=== PATIENT | female | born 1960 | race Caucasian/White ===

== ENCOUNTER 2021-06-20 11:39 | Inpatient (IN) | payer BC, SELFPAY ==
[2021-06-20] VITALS (8 sets, daily range): BP systolic 99–112; BP diastolic 50–63; PULSE 86–95; RESP 20–31; TEMP 36.6–37.3; O2SAT 82–97; BMI 25.0
--- NOTE | 2021-06-20 13:05 | XR_ITS ---
WS: [id number] XR chest 1V portable [id number] REASON FOR EXAM: SOB FINDINGS: The heart and mediastinum are within normal limits. There are infiltrative changes in both lower lobes and in the left mid and upper lung field periphera lly. These infiltrates are characterized by hazy density with a reticular nodular pattern. No pleural effusions. The bony thorax is intact. XR/XR chest 1V portable [id number] IMPRESSION: Bilateral pulmonary infiltrates of unknown chronicity. Findings are compatible with acute pneumonitis. Pattern is suggestive of Covid pneumonitis.
--- NOTE | 2021-06-20 13:05 | ECG_ITS ---
[facility] Test Date: 2021-06-20 Pat Name: Kiara Oleary Department: Room: Gender: Female Normalizer: : 1960 Requested By: Neftaly Falk Order Number: [id number] Janine MD: Tab Akins M.D. Measurements Intervals Crowell Rate: 100 P: 39 MO: 148 QRS: 79 QRSD: 75 T: 39 QT: 344 QTc: 445 Interpretive Statements SINUS TACHYCARDIA MINIMAL ST DEPRESSION [0.025+ mV ST DEPRESSION] ABNORMAL RHYTHM ECG Compared to ECG 01/18/2017 17:16:53 ST (T wave) deviation now present Sinus rhythm no longer present Electronically Signed On 06-20-2021 14:42:27 CDT by Tab Akins M.D. [id number]
--- NOTE | 2021-06-20 13:08 | W.ED.SOB ---
HPI - SOB/Dyspnea General: Chief Complaint: Shortness of Breath/Dyspnea Stated Complaint: sent,COVID(-):DIZZY, LOW 02 (79%) Time Seen by Provider: 06/20/21 13:03 History of Present Illness: HPI Narrative: This patient is a 60-year-old female who presents to the emergency department with a complaint of shortness of breath diarrhea fatigue body aches. Patient also states she complains of feeling chilled. Patient was seen locally at the burn clinic [facility] and was found to have a pulse ox of 78% on room air. Patient presents to the emergency department with family member with shortness of breath on 3 L by nasal cannula pulse ox is 88%. Patient states that she did recently have a negative Covid swab. States she is been feeling bad for about a week and seems to be getting worse. Patient denies fever. Patient denies any significant medical history and takes no medications at home. Patient has not had the Covid vaccine and states she does not want one. MD elicited complaint: shortness of breath and cough Onset (ago): day(s) Timing: constant Severity: moderate Exacerbating factors: nothing Relieving factors: nothing Associated symptoms: Reports cough; Deny abdominal pain, chest pain, extremity pain, fever(s), lightheadedness, nausea, palpitations or vomiting Treatment prior to arrival: oxygen Review of Systems General: Reports: 10 or more systems reviewed and unremarkable except in HPI and below Const: Reports: chills, body aches and fatigue; Denies: fever(s) Eyes: Denies: change in vision or blurry vision ENMT: Denies: throat pain, hoarseness or mouth pain Card: Denies: chest pain, palpitations, irregular heart rhythm, edema, swelling of feet/ankles or lightheadedness Resp: Reports: dyspnea and non-productive cough; Denies: productive cough, wheezing or pain on inspiration GI: Denies: abdominal pain, nausea or vomiting : Denies: flank pain, difficulty voiding, dysuria, urinary frequency, urinary urgency or urinary hesitancy Musc: Denies: neck pain, back pain, extremity pain, extremity swelling, joint pain, joint swelling, joint redness, joint warmth or limited range of motion Skin/Breast: Denies: rash, pruritus, erythema or skin tenderness Neuro: Denies: headache(s), numbness in extremities or weakness in extremities Psych: Denies: anxiety or depression Physical Exam Const: COMMON NORMALS: no acute distress, average body habitus, patient oriented x3, no limitations, healthy appearing, alert and well nourished HENMT: COMMON NORMALS: normocephalic, atraumatic, hearing grossly normal bilaterally, external ears normal, EAC's normal, TM's normal bilaterally, Normal external nose present, Normal nasal mucous membranes and turbinates present, moist oral mucous membranes, oropharynx normal, dentition normal and gingiva normal HEAD & SCALP: normocephalic and atraumatic NOSE: Normal external nose present and Normal nasal mucous membranes and turbinates present EXTERNAL EAR: Yes external ears normal EXTERNAL AUDITORY CANAL: EAC's normal TYMPANIC MEMBRANE: TM's normal bilaterally Neck/C-Spine: COMMON NORMALS: full ROM, no lymphadenopathy, supple, no meningeal signs, no JVD, Thyroid normal and No carotid bruits THYROID: Thyroid normal Chest: COMMONS NORMALS: normal inspection of the chest, normal palpation of entire chest wall, normal inspection of the breasts and normal palpation of the breasts Breast/axilla inspection: Yes normal inspection of the breasts BREAST/AXILLA PALPATION: Yes normal palpation of the breasts Resp: COMMON NORMALS: No retractions, No use of accessory muscles, clear to auscultation bilaterally and percussion normal EFFORT & INSPECTION: Yes tachypneic and Yes respiratory distress AUSCULTATION: clear to auscultation bilaterally PERCUSSION: percussion normal Cardio: COMMON NORMALS: no JVD, regular rate, regular rhythm, S1 normal heart sound present, S2 normal heart sound present, No gallops present (Cardio), No clicks present (Cardio), No murmurs present (Cardio), No rub (Cardio) and Peripheral pulses 2+ throughout RATE: regular rate RHYTHM: regular rhythm HEART SOUNDS: S1 normal heart sound present and S2 normal heart sound present PERIPHERAL PULSES: Peripheral pulses 2+ throughout GI: COMMON NORMALS: Normal to inspection, nondistended, normoactive bowel sounds present, Soft to palpation, non-tender, No hepatosplenomegaly present, no masses and no bruits PALPATION: Yes Soft to palpation and Yes No hepatosplenomegaly present Back/Pelvis: COMMON NORMALS: thoracic and lumbar spine normal to inspection, no thoracic nor lumbar tenderness, thoraco-lumbar ROM normal and straight leg raise negative bilaterally Extremity: COMMON NORMALS: normal to inspection, full ROM, capillary refill normal, no joint enlargement, no clubbing, cyanosis or edema, no calf tenderness and no pedal edema Neuro: COMMON NORMALS: patient oriented x3 SENSORIUM/ORIENTATION: Yes alert MENINGEAL SIGNS: Yes no meningeal signs Course Reevaluation(s): Reevaluation #1: Patient's O2 sat on 3 L by nasal cannula is 93%. I asked respiratory at the bedside to ambulate patient to see if the patient could do a home O2 evaluation. Patient was intolerant of this evaluation. O2 sat dropped to 81% after walking just a few feet. Patient will need to be admitted. Will still have concerns of possible Covid infection. [employer] Covid test has been ordered. We will continue to monitor the patient Time: 13:46 Reevaluation #2: I did discuss at length with patient about findings and concerns that she does have a Covid infection. Have sent out for [employer] test. PCR patient's O2 sat very labile when trying to get up. Patient be admitted to the hospital to the Covid unit patient states understanding and agrees. Time: 15:59 Consultations: Consultation #1: I did discuss at length with hospitalist agrees to see the patient he will see patient write additional orders. Time: 15:59 Vital Signs: Vital signs: Vital Signs Temperature 97.8 F 06/20/21 12:52 Pulse Rate 91 06/20/21 13:55 Respiratory Rate 31 H 06/20/21 13:55 Blood Pressure 102/63 06/20/21 12:52 Pulse Oximetry 90 06/20/21 13:55 MDM - SOB/Dyspnea MDM Narrative: Medical decision making narrative: This patient is a 60-year-old female who presents to the emergency department with a complaint of shortness of breath diarrhea fatigue body aches. Patient also states she complains of feeling chilled. Patient was seen locally at the burn clinic [facility] and was found to have a pulse ox of 78% on room air. Patient presents to the emergency department with family member with shortness of breath on 3 L by nasal cannula pulse ox is 88%. Patient states that she did recently have a negative Covid swab. States she is been feeling bad for about a week and seems to be getting worse. Patient denies fever. Patient denies any significant medical history and takes no medications at home. Patient has not had the Covid vaccine and states she does not want one. Patient's O2 sat on 3 L by nasal cannula is 93%. I asked respiratory at the bedside to ambulate patient to see if the patient could do a home O2 evaluation. Patient was intolerant of this evaluation. O2 sat dropped to 81% after walking just a few feet. Patient will need to be admitted. Will still have concerns of possible Covid infection. [facility] Covid test has been ordered. We will continue to monitor the patient I did discuss at length with patient about findings and concerns that she does have a Covid infection. Have sent out for [facility] test. PCR patient's O2 sat very labile when trying to get up. Patient be admitted to the hospital to the Covid unit patient states understanding and agrees. I did discuss at length with hospitalist agrees to see the patient he will see patient write additional orders. He will address remdesivir if needed. Lab Data: Labs: Lab Results 06/20/21 06/20/21 06/20/21 Range/Units 13:21 13:55 13:55 WBC (4.0-10.0) 10^3/ uL RBC (4.1-5.3) 10^6/u L Hgb (11.5-15.3) g/dL Hct (37.0-47.0) % MCV (81-99) fL MCH (28.0-34.0) pg MCHC (30.0-36.0) g/dL RDW (12.1-15.1) % Plt Count (130-400) 10^3/c mm MPV (7.4-10.4) fL Neut % (Auto) % Lymph % (Auto) % Fillmore % (Auto) % Eos % (Auto) % Baso % (Auto) % Neut # (Auto) (1.8-7.7) 10^3/u L Lymph # (Auto) (0.8-4.8) 10^3/u L Fillmore # (Auto) (0.2-0.9) 10^3/u L Eos # (Auto) (0.0-0.8) 10^3/u L Baso # (Auto) (0.0-0.1) 10^3/u L Nucleated RBC % (a uto) % Nucleated RBCs # /100WBC PT (12.1-14.9) SECO NDS INR (0.8-1.2) APTT (23.9-36.7) SECO NDS Fibrinogen (174-498) mg/dL D-Dimer (0-0.59) ug/mIFE U Specimen Type Arterial Sample Site Brachial, left ABG pH 7.44 (7.35-7.45) ABG pCO2 29.8 L (35-45) mmHg ABG pO2 73.2 L (80.0-100.0) mmH g ABG HCO3 20.1 L (22-26) mmol/L ABG Base Excess -3.0 L (-2.0-2.0) mmol/ L Chad Test Pos Hematocrit 40.1 (37-47) % O2 Delivery Device Nc O2 Liters/Min 3.0 % FiO2 32.0 % Case Packer And Sealer ID [place] Sodium (136-145) mmol/L Potassium (3.5-5.1) mmol/L Chloride (98-107) mmol/L Carbon Dioxide (22-29) mmol/L Anion Gap (5-19) BUN (6-20) mg/dL Creatinine (0.5-0.9) mg/dL GFR Calculation (90-130) mL/min Glucose (65-115) mg/dL Calculated Osmolal ity (285-295) mOsm/k g Lactic Acid (0.5-2.2) mmol/L Calcium (8.5-10.5) mg/dL Total Bilirubin (0.15-1.2) mg/dL AST (0-32) U/L ALT (0-33) U/L Alkaline Phosphata se (35-105) IU/L Lactate Dehydrogen ase (135-214) U/L Creatine Kinase (26-192) U/L Troponin T Gen 5 n g/L (0-10) ng/L C-Reactive Protein (0.0-4.9) mg/L NT-Pro-B Natriuret Pep (0-125) pg/mL Total Protein (6.6-8.7) g/dL Albumin (3.5-5.2) g/dL Globulin (1.3-4.6) g/dL Influenza Type A A g Negative (Negative) Influenza Type B A g Negative (Negative) SARS-CoV-2 Ag (Rap id) Negative (Negative) 06/20/21 06/20/21 06/20/21 Range/Units 14:38 14:38 14:38 WBC 8.2 (4.0-10.0) 10^3/ uL RBC 3.36 L (4.1-5.3) 10^6/u L Hgb 10.7 L (11.5-15.3) g/dL Hct 32.9 L (37.0-47.0) % MCV 97.9 (81-99) fL MCH 31.8 (28.0-34.0) pg MCHC 32.5 (30.0-36.0) g/dL RDW 12.7 (12.1-15.1) % Plt Count 312 (130-400) 10^3/c mm MPV 10.5 H (7.4-10.4) fL Neut % (Auto) 75.8 % Lymph % (Auto) 16.1 % Fillmore % (Auto) 6.7 % Eos % (Auto) 0.1 % Baso % (Auto) 0.2 % Neut # (Auto) 6.18 (1.8-7.7) 10^3/u L Lymph # (Auto) 1.3 (0.8-4.8) 10^3/u L Fillmore # (Auto) 0.6 (0.2-0.9) 10^3/u L Eos # (Auto) 0.0 (0.0-0.8) 10^3/u L Baso # (Auto) 0.0 (0.0-0.1) 10^3/u L Nucleated RBC % (a uto) 0 % Nucleated RBCs # 0.0 /100WBC PT 13.50 (12.1-14.9) SECO NDS INR 1.00 (0.8-1.2) APTT 22.7 L (23.9-36.7) SECO NDS Fibrinogen 716 H (174-498) mg/dL D-Dimer 2.01 H (0-0.59) ug/mIFE U Specimen Type Sample Site ABG pH (7.35-7.45) ABG pCO2 (35-45) mmHg ABG pO2 (80.0-100.0) mmH g ABG HCO3 (22-26) mmol/L ABG Base Excess (-2.0-2.0) mmol/ L Chad Test Hematocrit (37-47) % O2 Delivery Device O2 Liters/Min % FiO2 % Case Packer And Sealer ID Sodium 132 L (136-145) mmol/L Potassium 3.5 (3.5-5.1) mmol/L Chloride 96 L (98-107) mmol/L Carbon Dioxide 20 L (22-29) mmol/L Anion Gap 19.5 H (5-19) BUN 18 (6-20) mg/dL Creatinine 0.8 (0.5-0.9) mg/dL GFR Calculation 73.4 L (90-130) mL/min Glucose 82 (65-115) mg/dL Calculated Osmolal ity 275 L (285-295) mOsm/k g Lactic Acid (0.5-2.2) mmol/L Calcium 8.9 (8.5-10.5) mg/dL Total Bilirubin 0.9 (0.15-1.2) mg/dL AST 59 H (0-32) U/L ALT 26 (0-33) U/L Alkaline Phosphata se 104 (35-105) IU/L Lactate Dehydrogen ase 522 H (135-214) U/L Creatine Kinase 63 (26-192) U/L Troponin T Gen 5 n g/L (0-10) ng/L C-Reactive Protein 77.1 H (0.0-4.9) mg/L NT-Pro-B Natriuret Pep 141 H (0-125) pg/mL Total Protein 7.7 (6.6-8.7) g/dL Albumin 3.6 (3.5-5.2) g/dL Globulin 4.1 (1.3-4.6) g/dL Influenza Type A A g (Negative) Influenza Type B A g (Negative) SARS-CoV-2 Ag (Rap id) (Negative) 06/20/21 06/20/21 Range/Units 14:38 14:38 WBC (4.0-10.0) 10^3/ uL RBC (4.1-5.3) 10^6/u L Hgb (11.5-15.3) g/dL Hct (37.0-47.0) % MCV (81-99) fL MCH (28.0-34.0) pg MCHC (30.0-36.0) g/dL RDW (12.1-15.1) % Plt Count (130-400) 10^3/c mm MPV (7.4-10.4) fL Neut % (Auto) % Lymph % (Auto) % Fillmore % (Auto) % Eos % (Auto) % Baso % (Auto) % Neut # (Auto) (1.8-7.7) 10^3/u L Lymph # (Auto) (0.8-4.8) 10^3/u L Fillmore # (Auto) (0.2-0.9) 10^3/u L Eos # (Auto) (0.0-0.8) 10^3/u L Baso # (Auto) (0.0-0.1) 10^3/u L Nucleated RBC % (a uto) % Nucleated RBCs # /100WBC PT (12.1-14.9) SECO NDS INR (0.8-1.2) APTT (23.9-36.7) SECO NDS Fibrinogen (174-498) mg/dL D-Dimer (0-0.59) ug/mIFE U Specimen Type Sample Site ABG pH (7.35-7.45) ABG pCO2 (35-45) mmHg ABG pO2 (80.0-100.0) mmH g ABG HCO3 (22-26) mmol/L ABG Base Excess (-2.0-2.0) mmol/ L Chad Test Hematocrit (37-47) % O2 Delivery Device O2 Liters/Min % FiO2 % Case Packer And Sealer ID Sodium (136-145) mmol/L Potassium (3.5-5.1) mmol/L Chloride (98-107) mmol/L Carbon Dioxide (22-29) mmol/L Anion Gap (5-19) BUN (6-20) mg/dL Creatinine (0.5-0.9) mg/dL GFR Calculation (90-130) mL/min Glucose (65-115) mg/dL Calculated Osmolal ity (285-295) mOsm/k g Lactic Acid 1.9 (0.5-2.2) mmol/L Calcium (8.5-10.5) mg/dL Total Bilirubin (0.15-1.2) mg/dL AST (0-32) U/L ALT (0-33) U/L Alkaline Phosphata se (35-105) IU/L Lactate Dehydrogen ase (135-214) U/L Creatine Kinase (26-192) U/L Troponin T Gen 5 n g/L 8 (0-10) ng/L C-Reactive Protein (0.0-4.9) mg/L NT-Pro-B Natriuret Pep (0-125) pg/mL Total Protein (6.6-8.7) g/dL Albumin (3.5-5.2) g/dL Globulin (1.3-4.6) g/dL Influenza Type A A g (Negative) Influenza Type B A g (Negative) SARS-CoV-2 Ag (Rap id) (Negative) Imaging Data^: CXR: Attestation: I personally reviewed and interpreted this imaging study as follows: Radiologist's impression: IMPRESSION: Bilateral pulmonary infiltrates of unknown chronicity. Findings are compatible with acute pneumonitis. Pattern is suggestive of Covid pneumonitis. EKG Data^: EKG 1: Attestation: I personally reviewed and interpreted this EKG as follows: EKG Interpretation Date: 06/20/21 EKG interpretation time: 14:25 Prior EKG tracings: not available for review Interpretation: Sinus tachycardia heart rate [address] changes Discharge Plan Discharge Patient Disposition: Admitted As Inpatient Clinical Impression: Dyspnea due to severe acute respiratory syndrome coronavirus 2 (SARS-CoV-2) disease Condition: Stable Coding Level of Care Code ED Fertilizer Supervisor for Chg Fwd Exam Comprehensive
[2021-06-20] MEDS: albuterol 8 gm MDI 2 PUFF INHALATION (13:23)
[2021-06-20 13:34] LABS: ABG PCO2 29.8 mmHg (35-45); ABG PH Result 7.44 (7.35-7.45); Arterial Blood Gas Hematocrit 40.1 % (37-47); Blood Gas Allen Test Pos; Blood Gas Operator Identificat MONRO; Blood Gas Sample Site Brachial, left; Blood Gas Sample Type Arterial; HCO3 ABG 20.1 mmol/L (22-26); Oxygen Device NC; PO2 ABG 73.2 mmHg (80.0-100.0)
[2021-06-20 14:42] LABS: Influenza A by IFA Negative (Negative); Influenza B by IFA Negative (Negative); SARS Covid-2 Antigen Negative (Negative)
[2021-06-20 14:45] LABS: Basophils % 0.2 %; Eosinophils % 0.1 %; Hematocrit 32.9 % (37.0-47.0); Hemoglobin 10.7 g/dL (11.5-15.3); Lymphocytes # 1.3 10^3/uL (0.8-4.8); Lymphocytes % 16.1 %; Mean Corpuscular HGB Conc 32.5 g/dL (30.0-36.0); Mean Corpuscular Hemoglobin 31.8 pg (28.0-34.0); Mean Corpuscular Volume 97.9 fL (81-99); Mean Platelet Volume 10.5 fL (7.4-10.4); Monocytes # 0.6 10^3/uL (0.2-0.9); Monocytes % 6.7 %; Neutrophils # 6.18 10^3/uL (1.8-7.7); Neutrophils % 75.8 %; Nucleated Red Blood Cells % 0 %; Platelet Count 312 10^3/cmm (130-400); Positive M 1; Red Blood Count 3.36 10^6/uL (4.1-5.3); Red Cell Distribution Width 12.7 % (12.1-15.1); White Blood Count 8.2 10^3/uL (4.0-10.0)
[2021-06-20 15:02] LABS: Troponin T (5th) Once 8 ng/L (0-10)
[2021-06-20 15:03] LABS: Lactic Sepsis W/Reflex 1.9 mmol/L (0.5-2.2); Partial Thromboplastin Time 22.7 SECONDS (23.9-36.7)
[2021-06-20 15:05] LABS: D Dimer 2.01 ug/mIFEU (0-0.59)
--- NOTE | 2021-06-20 15:05 | CT_ITS ---
WS: [id number] CTA OF THE CHEST WITH PULMONARY EMBOLISM PROTOCOL TECHNIQUE: High-resolution contrast enhanced CTA of the chest with coronal and sagittal reformatted i mages with pulmonary embolism protocol. MIP images are also reviewed. CLINICAL INFORMATION: SOB with Elevated DDimer COMPARISON: None. DLP: 450.[address] scans at [facility] use at least one of these dose optimization techniques: automat ed exposure control; mA and/or kV adjustment per patient size (includes targeted exams where dose is matched to clinical indication); or iterative reconstruction. FINDINGS: Proximal main pulmonary arteries are normal. Normal segmental and subsegmental pulmonary arteries. No evidence of pulmonary embolus. Normal caliber thoracic aorta. A few prominent peribronchial lymph nodes likely reactive. Mild bilate ral bronchovascular thickening. Hazy bilateral groundglass infiltrates throughout both lungs more prominent in the mid and lower lobe s in a subpleural location compatible with COVID 19 pneumonia. No significant pleural fluid. Small esophageal hiatal hernia. Adrenal glands are normal. Mild thoracic kyphosis with chronic anteri or wedging in the mid thoracic spine. CT/CT angio chest PE protcl [id number] IMPRESSION: 1. No evidence of pulmonary embolism. 2. Diffuse bilateral hazy groundglass infiltrates more prominent in the mid an d lower lungs bilaterally in a subpleural configuration compatible with COVID 1 9 pneumonia. 3. A few reactive anterior mediastinal and peribronchial lymph nodes. 4. Small esophageal hiatal hernia.
[2021-06-20 15:13] LABS: Alanine Aminotransferase 26 U/L (0-33); Albumin Level 3.6 g/dL (3.5-5.2); Alkaline Phosphatase 104 IU/L (35-105); Anion Gap 19.5 (5-19); Aspartate Amino Transferase 59 U/L (0-32); Blood Urea Nitrogen 18 mg/dL (6-20); C Reactive Protein 77.1 mg/L (0.0-4.9); Calcium 8.9 mg/dL (8.5-10.5); Carbon Dioxide 20 mmol/L (22-29); Chloride 96 mmol/L (98-107); Creatine Phosphokinase 63 U/L (26-192); Globulin 4.1 g/dL (1.3-4.6); Glomerular Filtration Rate 73.4 mL/min (90-130); Glucose 82 mg/dL (65-115); Lactate Dehydrogenase 522 U/L (135-214); NT Pro B Type Natriuretic Pept 141 pg/mL (0-125); Osmolality Calculated 275 mOsm/kg (285-295); Potassium 3.5 mmol/L (3.5-5.1); Sodium 132 mmol/L (136-145); Total Bilirubin 0.9 mg/dL (0.15-1.2); Total Protein 7.7 g/dL (6.6-8.7)
[2021-06-20 15:23] LABS: Fibrinogen 716 mg/dL (174-498)
[2021-06-20] MEDS: dexamethasone 4 mg/mL INJ 6 MG IVP (16:00)
--- NOTE | 2021-06-20 16:24 | PC.NURSE ---
DEXAMETHASONE DELAY D/T DIFFICULTY OBTAINING IV ACCESS.
[2021-06-20] MEDS: iohexol 350 mg/mL 100 mL Btl IV (16:29)
--- NOTE | 2021-06-20 18:50 | P.HP_ITS ---
Providers/Chief Complaint Chief Complaint: sent,COVID(-):DIZZY, LOW 02 (79%) History of Present Illness Kiara Oleary is a 60 year old female with no known past medical history presented today with chief complaint of dizziness and fatigue. Symptoms started 1 week ago which she describing as lightheaded and dizziness. No recent syncopal events or falls. She has been experiencing diarrhea, nausea with worsening of fatigue and anorexia. She has been experiencing rigors/chills and subjective fevers. She lives alone. She is not vaccinated. No active chest pain. She is endorsing shortness of breath at rest and on exertion. EMS was called, she was saturating 78% on room air, she was put on 3 L nasal cannula and on ambulation she desaturated to 80%, COVID-19 negative, PCR sent, she was given Decadron in the ER, chest x-ray consistent with bilateral groundglass opacities her clinical presentation consistent with COVID-19 I will go ahead and start remdesivir. High D-dimer however CTA ruled out PE. Review of Systems Const: Reports: fever(s) and chills Eyes: Denies: change in vision ENMT: Denies: throat pain Card: Denies: chest pain Resp: Reports: dyspnea GI: Reports: diarrhea; Denies: abdominal pain : Denies: flank pain Musc: Denies: neck pain Skin/Breast: Denies: rash Neuro: Reports: headache(s) Psych: Denies: anxiety Endo: Denies: polyuria Marco/Lymph: Denies: easy bruising All/Imm: Denies: urticaria Medications/Allergies Home Medications Medication Instructions Recorded Confirmed Last Taken Type acetaminophen [Tylenol Extra 1,000 mg PO PRN 06/20/21 06/20/21 Unknown History Strength] loratadine [Claritin] 10 mg PO DAILY PRN 06/20/21 06/20/21 06/19/21 History Allergies Allergy/AdvReac Type Severity Reaction Status Date / Time No Known Allergies Allergy Verified 06/20/21 13:39 PFSH Acute PFSH: Medical History (Updated 06/20/21 @ 19:26 by Adina Easley MD) No pertinent past medical history Surgical History (Updated 06/20/21 @ 19:24 by Adina Easley MD) No history of previous surgery Family History (Updated 06/20/21 @ 19:24 by Adina Easley MD) Denies family history of Chronic kidney disease (CKD) Family history of premature coronary artery disease Lung disease Social History (Updated 06/20/21 @ 19:25 by Adina Easley MD) Smoking and tobacco status: never smoked Alcohol intake: never Substance/Drug Use: never Lives independently: Yes Housing: House Vitals/I&O/Wt Last Vital Signs Temp 97.8 F 06/20/21 12:52 Pulse 89 06/20/21 16:24 Resp 31 H 06/20/21 13:55 BP 102/63 06/20/21 12:52 Pulse Ox 93 06/20/21 16:24 Weight last 48 hrs Weight 56.245 kg Physical Exam Narrative: EXAM NARRATIVE: Healthy looking female who was laying flat in her bed saturating well on 3 L nasal cannula S1, S2 sinus rhythm no signs of heart failure or murmur Abdomen soft nontender bowel sounds present Lower extremity no edema gangrene ulcer EOMI, PERRLA GCS 15 No cellulitis or joint swelling Bilateral breath sounds without audible stridor or wheezing Data : 06/20/21 14:38 06/20/21 14:38 Micro: Microbiology 06/20/21 15:39 Blood Culture - Preliminary Blood SPECIMEN COLLECTED 06/20/21 14:38 Blood Culture - Preliminary Blood SPECIMEN COLLECTED A&P Assessment and plan (1) Dyspnea due to severe acute respiratory syndrome coronavirus 2 (SARS-CoV-2) disease: Status: Acute (2) Acute respiratory failure with hypoxia: Status: Acute Additional A&P Information Acute hypoxia most likely secondary COVID-19 pneumonia Currently saturating well on 3 L nasal cannula Covid antigen negative, PCR sent Start remdesivir and Decadron regimen CRP above 75, if her oxygen requirement is going up would consider interleukin-6 inhibitor Ventolin, encourage proning PT evaluation Inflammatory marker follow-up CTA ruled out PE for high D-dimer , Patient lives alone and is not interested in getting vaccine Full code Cardiac diet DVT prophylaxis Lovenox Attestations Medical Necessity Statement*: Anticipating her stay to cross more than 2 midnights Time Spent in Patient Care: 16 - 35 minutes Coding Level of Care Code Acute Blacking Wheel Tender for Masoud Fwselene Diagnoses Dyspnea due to severe acute respiratory syndrome coronavirus 2 (SARS-CoV-2) disease U07.1; R06.00 Acute respiratory failure with hypoxia J96.01
--- NOTE | 2021-06-20 19:09 | PC.NURSE ---
Report from JOSEPH Menjivar
[2021-06-20 20:38] LABS: Estmated Average Glucose 114; Hemoglobin A1C 5.6 % (4.0-6.0)
[2021-06-20] MEDS: remdesivir 200 MG in sodium chloride 0.9% (100 ml) 100 ML 100 MG IV (23:26)
[2021-06-21] VITALS (13 sets, daily range): BP systolic 95–114; BP diastolic 53–64; PULSE 63–84; RESP 14–22; TEMP 36.4–37.1; O2SAT 90–95
[2021-06-21 03:32] LABS: Basophils % 0.3 %; Hematocrit 36.8 % (37.0-47.0); Hemoglobin 12.4 g/dL (11.5-15.3); Lymphocytes % 25.2 %; Mean Corpuscular HGB Conc 33.7 g/dL (30.0-36.0); Mean Corpuscular Hemoglobin 31.2 pg (28.0-34.0); Mean Corpuscular Volume 92.5 fL (81-99); Mean Platelet Volume 10.8 fL (7.4-10.4); Monocytes # 0.2 10^3/uL (0.2-0.9); Monocytes % 6.1 %; Neutrophils # 2.52 10^3/uL (1.8-7.7); Neutrophils % 66.8 %; Nucleated Red Blood Cells % 0 %; Platelet Count 288 10^3/cmm (130-400); Red Blood Count 3.98 10^6/uL (4.1-5.3); Red Cell Distribution Width 12.2 % (12.1-15.1); White Blood Count 3.8 10^3/uL (4.0-10.0)
[2021-06-21 03:57] LABS: Anion Gap 17.1 (5-19); Blood Urea Nitrogen 19 mg/dL (6-20); Carbon Dioxide 21 mmol/L (22-29); Chloride 101 mmol/L (98-107); Glomerular Filtration Rate 73.4 mL/min (90-130); Glucose 143 mg/dL (65-115); Magnesium 2.5 mg/dL (1.7-2.3); Osmolality Calculated 285 mOsm/kg (285-295); Potassium 4.1 mmol/L (3.5-5.1); Sodium 135 mmol/L (136-145)
[2021-06-21 04:01] LABS: Procalcitonin 0.23 ng/mL (0-0.5)
[2021-06-21 04:12] LABS: Ferritin 2569 ng/mL (15-150)
[2021-06-21 04:26] LABS: Slide Review Slide Review Perform
[2021-06-21 05:01] LABS: ABG PCO2 35.8 mmHg (35-45); ABG PH Result 7.42 (7.35-7.45); Base Excess ABG -1.2 mmol/L (-2.0-2.0); Blood Gas Allen Test Pos; Blood Gas Sample Site Radial, left; Blood Gas Sample Type Arterial; Oxygen Device NC; PO2 ABG 62.6 mmHg (80.0-100.0)
--- NOTE | 2021-06-21 13:54 | P.PN_ITS ---
Subjective Subjective: Interval history: Patient is feeling lethargic and fatigued, subjective fevers with chills, she has not been able to get up from bed because of her weakness Saturating well on 3 L nasal cannula Vitals/I&O/Wt Last Vital Signs Temp 97.6 F 06/21/21 11:50 Pulse 64 06/21/21 11:50 Resp 14 06/21/21 11:50 BP 104/53 06/21/21 11:50 Pulse Ox 92 06/21/21 11:50 06/20/21 06/21/21 06/21/21 22:59 06:59 14:59 Intake Total 300 / 300 480 / 480 Output Total 450 / 450 Balance 300 / 300 / Weight last 48 hrs Weight 56.245 kg Physical Exam Narrative: EXAM NARRATIVE: Patient was in her bed extremely lethargic and fatigued She is endorsing diarrhea today No abdominal tenderness No acute respite distress saturating well on 3 to nasal cannula No strokelike symptoms EOMI, PERRLA No new neurological deficits No joint swelling No cellulitis Data : 06/21/21 02:42 06/21/21 02:42 Micro: Microbiology 06/20/21 15:39 Blood Culture - Preliminary Blood SPECIMEN COLLECTED 06/20/21 14:38 Blood Culture - Preliminary Blood SPECIMEN COLLECTED A&P Assessment and plan (1) Acute respiratory failure with hypoxia: Status: Acute Additional A&P Information Acute hypoxic respiratory failure Fatigue lethargy with high inflammatory markers Covid PCR pending however I have started her on Decadron and remdesivir on chest x-ray showing groundglass opacities Currently saturating well on 3 to nasal cannula she has to work with physical therapy today we will ask RT to see if she is able to maintain her saturation on ambulation Complaining of diarrhea today as well Afebrile BNP 141 Full code DVT prophylaxis Lovenox Regular diet Attestations Medical Necessity Statement*: Continue medical management for hypoxia Time Spent in Patient Care: less than 15 minutes Coding Level of Care Code Acute Pharmaceutical Sales Representative for Masoud Emmanuel Diagnoses Acute respiratory failure with hypoxia J96.01
[2021-06-21] MEDS: remdesivir 100 MG in sodium chloride 0.9% (100 ml) 100 ML IV (17:10)
[2021-06-21] MEDS: albuterol 8 gm MDI 2 PUFF INHALATION (20:54)
[2021-06-21] MEDS: dexamethasone 4 mg/mL INJ 6 MG IVP (20:59)
[2021-06-21] MEDS: enoxaparin 40 mg/0.4 mL Syringe SUBCUT (20:59)
[2021-06-21] MEDS: acetaminophen 500 mg Tablet PO (21:30)
[2021-06-22] VITALS (10 sets, daily range): BP systolic 95–120; BP diastolic 56–70; PULSE 56–79; RESP 16–20; TEMP 36.4–37; O2SAT 89–97
[2021-06-22] MEDS: albuterol 8 gm MDI 2 PUFF INHALATION (08:30)
--- NOTE | 2021-06-22 12:53 | P.PN_ITS ---
Subjective Subjective: Interval history: Covid PCR is pending, patient is feeling lethargic and fatigued however afebrile doing well on 5 to 6 L nasal cannula which I have turned down to 4 L in the room she is able to use bedside commode no active diarrhea Vitals/I&O/Wt Last Vital Signs Temp 98.4 F 06/22/21 11:25 Pulse 76 06/22/21 11:25 Resp 20 H 06/22/21 11:25 BP 95/59 06/22/21 11:25 Pulse Ox 91 06/22/21 11:25 06/21/21 06/22/21 06/22/21 22:59 06:59 14:59 Intake Total 600 / 1080 200 / 1280 120 / 120 Output Total 300 / 750 Balance 300 / 330 200 / 530 120 / 120 Physical Exam Narrative: EXAM NARRATIVE: Patient resting comfortably in her bed saturating well on 4 L nasal cannula S1, S2 no murmur appreciated clinically looks euvolemic Abdomen soft no signs of peritonitis no neurological deficits noted No acute signs of respiratory distress no audible stridor or wheezing No signs of cellulitis or joint swelling Data : 06/21/21 02:42 06/21/21 02:42 Micro: Microbiology 06/20/21 15:39 Blood Culture - Preliminary Blood NEGATIVE TO DATE 06/20/21 14:38 Blood Culture - Preliminary Blood NEGATIVE TO DATE A&P Assessment and plan (1) Acute respiratory failure with hypoxia: Acute hypoxic respiratory failure secondary to likely COVID-19, PCR is pending, saturating well on 4 to 5 L nasal cannula She is afebrile, I would continue Decadron and remdesivir for now High inflammatory markers noted If her PCR comes back positive and she is requiring higher O2 she might qualify for interleukin-6 inhibitor dose Status: Acute Additional A&P Information Regular diet Hemoglobin A1c within normal range Full code DVT prophylaxis Lovenox Attestations Medical Necessity Statement*: She will stay in the hospital until her PCR comes back, high risk for deterioration requiring 4 to 5 L of nasal cannula Time Spent in Patient Care: less than 15 minutes Coding Level of Care Code Acute 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
[2021-06-22] MEDS: remdesivir 100 MG in sodium chloride 0.9% (100 ml) 100 ML IV (17:19)
--- NOTE | 2021-06-22 17:34 | PC.PT ---
pt indep with transfers and gait without AD or O2, no therapy needs noted by patient at this time. pt to notifiy nursing if this changes. pt instructed in marching and sit to stand to sit ex. no therapy needed at this time. PM MSPT
--- NOTE | 2021-06-22 18:11 | PC.NURSE ---
Shift Summary No complaints from patient throughout shift. Patient weaned to 3L per NC. She is up to BSC independently. Observed non-productive cough, patient states that sometime she coughs up clear phlegm. IV restarted in right hand, remdesivir administered per orders.
[2021-06-22] MEDS: dexamethasone 4 mg/mL INJ 6 MG IVP (20:25)
[2021-06-22] MEDS: enoxaparin 40 mg/0.4 mL Syringe SUBCUT (20:42)
[2021-06-23] VITALS (14 sets, daily range): BP systolic 84–112; BP diastolic 52–68; PULSE 58–83; RESP 15–20; TEMP 36.4–37.4; O2SAT 88–96
[2021-06-23] MEDS: albuterol 8 gm MDI 2 PUFF INHALATION ×3 (00:18→19:39)
[2021-06-23 06:33] LABS: Basophils % 0.1 %; Hematocrit 36.9 % (37.0-47.0); Hemoglobin 12.6 g/dL (11.5-15.3); Lymphocytes # 0.8 10^3/uL (0.8-4.8); Lymphocytes % 9.9 %; Mean Corpuscular HGB Conc 34.1 g/dL (30.0-36.0); Mean Corpuscular Hemoglobin 31.7 pg (28.0-34.0); Mean Corpuscular Volume 92.9 fL (81-99); Monocytes # 0.4 10^3/uL (0.2-0.9); Monocytes % 5.4 %; Neutrophils # 6.85 10^3/uL (1.8-7.7); Neutrophils % 83.9 %; Nucleated Red Blood Cells % 0 %; Platelet Count 335 10^3/cmm (130-400); Red Blood Count 3.97 10^6/uL (4.1-5.3); White Blood Count 8.2 10^3/uL (4.0-10.0)
[2021-06-23 07:01] LABS: C Reactive Protein 16.8 mg/L (0.0-4.9)
--- NOTE | 2021-06-23 10:46 | PM.PN ---
Subjective Subjective: Interval history: Patient was seen and examined this morning, patient endorsing feeling better, she is able to finish 70 to 80% of her meals, able to get up and use bedside commode, today she was saturating well on 3 L nasal cannula No overnight events her diarrhea has improved Covid PCR is still pending CRP seems to be trending down Noticed low blood pressure today we will give her a bolus of 500 mL of saline, check TSH Vitals/I&O/Wt Last Vital Signs Temp 98.0 F 06/23/21 08:00 Pulse 75 06/23/21 08:00 Resp 16 06/23/21 08:00 BP 96/60 06/23/21 08:00 Pulse Ox 90 06/23/21 08:00 06/22/21 06/23/21 06/23/21 22:59 06:59 14:59 Intake Total 320 / 560 500 / 500 Output Total 550 / 1150 Balance -230 / -590 500 / 500 Physical Exam Narrative: EXAM NARRATIVE: Patient was resting comfortably in her bed No active complaints no chest pain S1, S2 No signs of fluid overload Clinically looks euvolemic to me No neurological deficit No acute respite distress saturating well on 3 L nasal cannula EOMI, PERRLA No joint swelling or cellulitis Does experience dry cough on deep inspiration Data : 06/23/21 05:14 06/21/21 02:42 A&P Assessment and plan (1) Acute respiratory failure with hypoxia: Status: Acute (2) Hypotension: Status: Acute Additional A&P Information Acute hypoxic respiratory failure most likely related to COVID-19 fracture COVID-19 negative, Covid PCR is pending But depending on her symptoms and inflammatory markers I have started her on Decadron and remdesivir She is not vaccinated Continue Ventolin Procalcitonin unremarkable would not need any antibiotics CT rule out PE CRP trending down Patient is able to eat 70 to 80% of her meals, to work with physical therapy, encouraged proning and incentive spirometry Hypotension: Check TSH, this most likely related to consistent laying in her bed and lack of ambulation, no active signs of septic shock no active chest pain PE ruled out We will give her normal saline 500 mL bolus Patient lives alone and she does not want to go to any detention, will plan to send her home once we know her PCR result and PT evaluation Regular diet DVT prophylaxis Lovenox Full code Attestations Medical Necessity Statement*: Continue medical management she is at high risk for worsening of hypoxia continue hospitalization planning discharge probably on Thursday Time Spent in Patient Care: less than 15 minutes Coding Level of Care Code 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
[2021-06-23 11:57] LABS: Coronavirus Test Green County Not Detected
--- NOTE | 2021-06-23 16:56 | XRR_ITS ---
PROCEDURE INFORMATION: Exam: XR Chest Exam date and time: 06/23/2021 4:56 PM Age: 60 years old Clinical indication: Shortness of breath; Additional info: Hypoxia TECHNIQUE: Imaging protocol: XR of the chest. Views: 1 view. COMPARISON: CR XR chest 1V portable [id number] 06/20/2021 1:05 PM FINDINGS: Lungs: Increased patchy peripheral ground-glass opacities in both lungs. Pleural spaces: Unremarkable. No pleural effusion. No pneumothorax. Heart/Mediastinum: Unremarkable. No cardiomegaly. Bones/joints: Unremarkable. XR/XR chest 1V portable [id number] IMPRESSION: 1. Increased multilobar pneumonia.
[2021-06-23] MEDS: midodrine 5 mg TABLET 10 MG PO (17:35)
[2021-06-23] MEDS: remdesivir 100 MG in sodium chloride 0.9% (100 ml) 100 ML IV (17:35)
[2021-06-23] MEDS: sodium chloride 0.9% 1,000 ML 999 ML IV ×2 (17:35→19:01)
[2021-06-23 18:20] LABS: Thyroid Stimulating Hormone 0.52 uIU/mL (0.27-4.20)
[2021-06-23] MEDS: dexamethasone 4 mg/mL INJ 6 MG IVP (21:15)
[2021-06-23] MEDS: enoxaparin 40 mg/0.4 mL Syringe SUBCUT (21:16)
[2021-06-24] VITALS (15 sets, daily range): BP systolic 81–114; BP diastolic 39–69; PULSE 46–91; RESP 16–24; TEMP 36.4–36.9; O2SAT 88–98
[2021-06-24] MEDS: levoFLOXacin 750 mg Tablet PO (06:35)
[2021-06-24 07:00] LABS: Basophils % 0.1 %; Hematocrit 37.9 % (37.0-47.0); Hemoglobin 12.8 g/dL (11.5-15.3); Lymphocytes # 0.9 10^3/uL (0.8-4.8); Lymphocytes % 9.7 %; Mean Corpuscular HGB Conc 33.8 g/dL (30.0-36.0); Mean Corpuscular Hemoglobin 31.6 pg (28.0-34.0); Mean Corpuscular Volume 93.6 fL (81-99); Mean Platelet Volume 10.9 fL (7.4-10.4); Monocytes # 0.5 10^3/uL (0.2-0.9); Neutrophils # 7.26 10^3/uL (1.8-7.7); Neutrophils % 83.2 %; Nucleated Red Blood Cells % 0 %; Platelet Count 365 10^3/cmm (130-400); Red Blood Count 4.05 10^6/uL (4.1-5.3); Red Cell Distribution Width 12.2 % (12.1-15.1); White Blood Count 8.7 10^3/uL (4.0-10.0)
[2021-06-24 07:29] LABS: Anion Gap 15.4 (5-19); Blood Urea Nitrogen 16 mg/dL (6-20); C Reactive Protein 30.9 mg/L (0.0-4.9); Carbon Dioxide 20 mmol/L (22-29); Chloride 108 mmol/L (98-107); Glomerular Filtration Rate 85.6 mL/min (90-130); Glucose 142 mg/dL (65-115); Osmolality Calculated 292 mOsm/kg (285-295); Potassium 4.4 mmol/L (3.5-5.1); Sodium 139 mmol/L (136-145)
--- NOTE | 2021-06-24 12:24 | PM.PN ---
Subjective Subjective: Interval history: Patient was seen and examined this morning, continues to complain of shortness of breath, though it has slightly improved since yesterday. Blood pressure continues to remain on the softer side, she has continued to remain afebrile. Her other vitals and labs have been reviewed. Medications: Reviewed: Yes Vitals/I&O/Wt Last Vital Signs Temp 97.5 F L 06/24/21 11:58 Pulse 74 06/24/21 11:58 Resp 20 H 06/24/21 11:58 BP 93/48 06/24/21 11:58 Pulse Ox 96 06/24/21 11:58 06/23/21 06/24/21 06/24/21 22:59 06:59 14:59 Intake Total 2100 / 2960 150 / 3110 120 / 120 Output Total 450 / 450 700 / 700 Balance 1650 / 2510 150 / 2660 -580 / -580 Physical Exam Const: COMMON NORMALS: patient oriented x3 HENMT: COMMON NORMALS: normocephalic and atraumatic HEAD & SCALP: normocephalic and atraumatic Resp: COMMON NORMALS: clear to auscultation bilaterally AUSCULTATION: clear to auscultation bilaterally Cardio: COMMON NORMALS: regular rate, regular rhythm, S1 normal heart sound present, S2 normal heart sound present, No gallops present (Cardio), No murmurs present (Cardio), No rub (Cardio) and Peripheral pulses 2+ throughout RATE: regular rate RHYTHM: regular rhythm HEART SOUNDS: S1 normal heart sound present and S2 normal heart sound present PERIPHERAL PULSES: Peripheral pulses 2+ throughout GI: COMMON NORMALS: Normal to inspection, nondistended, normoactive bowel sounds present, Soft to palpation, non-tender, No hepatosplenomegaly present and no masses AUSCULTATION: Yes normoactive bowel sounds PALPATION: Yes Soft to palpation and Yes No hepatosplenomegaly present RECTAL EXAM: deferred Extremity: COMMON NORMALS: no clubbing, cyanosis or edema and no pedal edema Neuro: COMMON NORMALS: patient oriented x3 Data : 06/24/21 06:41 06/24/21 06:41 A&P Assessment and plan (1) Acute respiratory failure with hypoxia: Acute hypoxic respiratory failure secondary to likely COVID-19, PCR is pending, saturating well on 4 to 5 L nasal cannula She is afebrile, I would continue Decadron and remdesivir for now High inflammatory markers noted If her PCR comes back positive and she is requiring higher O2 she might qualify for interleukin-6 inhibitor dose Status: Acute (2) Hypotension: Status: Acute Additional A&P Information Acute hypoxic respiratory failure most likely related to COVID-19 PNA COVID-19 negative, Covid PCR is pending Urine legionella Bacterial Antigen panel Procalcitonin:Normal CT rule out PE Blood Culture: Influenza Negative Respiratory Viral Panel : MRSA PCR: CRP trending down Currently on Decadron and remdesivir empirically Cef and Levofloxacin She is not vaccinated Continue Ventolin Hypotension: TSH: Normal Random Cortisol : 1.10 Will plan for SIM Test Midodrine 5 mg po TID Check orthostatic Hypootension 2 D Echo Patient lives alone and she does not want to go to any detention, will plan to send her home once we know her PCR result and PT evaluation Regular diet DVT prophylaxis Lovenox Full code Attestations Medical Necessity Statement*: Patient needs to be in the hospital for management of pneumonia. 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
[2021-06-24] MEDS: albuterol 8 gm MDI 2 PUFF INHALATION (13:05)
[2021-06-24] MEDS: cefTRIAXone 1,000 MG in sodium chloride 0.9% (plus) 50 ML 100 MG IV (14:10)
[2021-06-24] MEDS: midodrine 5 mg TABLET PO ×2 (14:11→20:01)
--- NOTE | 2021-06-24 15:11 | PC.NURSE ---
Orthostatic vital signs were ordered. Patient was unable to tolerate standing for vital signs.
[2021-06-24 15:24] LABS: Coronavirus Test Green County Not Detected
[2021-06-24] MEDS: remdesivir 100 MG in sodium chloride 0.9% (100 ml) 100 ML IV (17:15)
[2021-06-24] MEDS: enoxaparin 40 mg/0.4 mL Syringe SUBCUT (20:01)
[2021-06-24] MEDS: dexamethasone 4 mg/mL INJ 6 MG IVP (21:13)
[2021-06-25] VITALS (11 sets, daily range): BP systolic 91–101; BP diastolic 57–66; PULSE 51–88; RESP 16–20; TEMP 36.4–37.1; O2SAT 88–98
[2021-06-25] MEDS: levoFLOXacin 750 mg Tablet PO (05:39)
[2021-06-25 05:51] LABS: Basophils % 0.2 %; Eosinophils % 0.1 %; Hematocrit 39.3 % (37.0-47.0); Hemoglobin 12.6 g/dL (11.5-15.3); Lymphocytes # 0.8 10^3/uL (0.8-4.8); Mean Corpuscular HGB Conc 32.1 g/dL (30.0-36.0); Mean Corpuscular Hemoglobin 31.3 pg (28.0-34.0); Mean Corpuscular Volume 97.8 fL (81-99); Mean Platelet Volume 10.9 fL (7.4-10.4); Monocytes # 0.4 10^3/uL (0.2-0.9); Monocytes % 4.9 %; Neutrophils # 6.77 10^3/uL (1.8-7.7); Neutrophils % 83.3 %; Nucleated Red Blood Cells % 0 %; Platelet Count 342 10^3/cmm (130-400); Red Blood Count 4.02 10^6/uL (4.1-5.3); Red Cell Distribution Width 12.4 % (12.1-15.1); White Blood Count 8.1 10^3/uL (4.0-10.0)
[2021-06-25 06:10] LABS: Alanine Aminotransferase 25 U/L (0-33); Albumin Level 2.4 g/dL (3.5-5.2); Alkaline Phosphatase 83 IU/L (35-105); Anion Gap 13.8 (5-19); Aspartate Amino Transferase 28 U/L (0-32); Blood Urea Nitrogen 15 mg/dL (6-20); Calcium 8.1 mg/dL (8.5-10.5); Carbon Dioxide 22 mmol/L (22-29); Chloride 108 mmol/L (98-107); Globulin 3.7 g/dL (1.3-4.6); Glomerular Filtration Rate 85.6 mL/min (90-130); Glucose 162 mg/dL (65-115); Osmolality Calculated 292 mOsm/kg (285-295); Potassium 4.8 mmol/L (3.5-5.1); Sodium 139 mmol/L (136-145); Total Bilirubin 0.4 mg/dL (0.15-1.2); Total Protein 6.1 g/dL (6.6-8.7)
[2021-06-25] MEDS: albuterol 8 gm MDI 2 PUFF INHALATION (08:10)
[2021-06-25] MEDS: midodrine 5 mg TABLET PO ×3 (08:26→20:59)
--- NOTE | 2021-06-25 09:39 | PM.PN ---
Subjective Subjective: Interval history: Patient was seen and examined this morning, shortness of breath has improved slightly,denies any other complaints Medications: Reviewed: Yes Vitals/I&O/Wt Last Vital Signs Temp 97.8 F 06/25/21 08:00 Pulse 88 06/25/21 08:11 Resp 20 H 06/25/21 08:11 BP 93/57 06/25/21 08:00 Pulse Ox 89 L 06/25/21 08:11 06/24/21 06/25/21 06/25/21 22:59 06:59 14:59 Intake Total 490 / 780 Output Total 600 / 1300 Balance 490 / 80 -600 / -520 Physical Exam Const: COMMON NORMALS: patient oriented x3 HENMT: COMMON NORMALS: normocephalic and atraumatic HEAD & SCALP: normocephalic and atraumatic Resp: COMMON NORMALS: clear to auscultation bilaterally AUSCULTATION: clear to auscultation bilaterally Cardio: COMMON NORMALS: regular rate, regular rhythm, S1 normal heart sound present, S2 normal heart sound present, No gallops present (Cardio), No murmurs present (Cardio), No rub (Cardio) and Peripheral pulses 2+ throughout RATE: regular rate RHYTHM: regular rhythm HEART SOUNDS: S1 normal heart sound present and S2 normal heart sound present PERIPHERAL PULSES: Peripheral pulses 2+ throughout GI: COMMON NORMALS: Normal to inspection, nondistended, normoactive bowel sounds present, Soft to palpation, non-tender, No hepatosplenomegaly present and no masses AUSCULTATION: Yes normoactive bowel sounds PALPATION: Yes Soft to palpation and Yes No hepatosplenomegaly present RECTAL EXAM: deferred Extremity: COMMON NORMALS: no clubbing, cyanosis or edema and no pedal edema Neuro: COMMON NORMALS: patient oriented x3 Data : 06/25/21 05:15 06/25/21 05:15 Micro: Microbiology 06/24/21 23:45 Legionella Urinary Antigen - Final Urine,Voided Bacterial Antigens - Final A&P Assessment and plan (1) Acute respiratory failure with hypoxia: Acute hypoxic respiratory failure secondary to likely COVID-19, PCR is pending, saturating well on 4 to 5 L nasal cannula She is afebrile, I would continue Decadron and remdesivir for now High inflammatory markers noted If her PCR comes back positive and she is requiring higher O2 she might qualify for interleukin-6 inhibitor dose Status: Acute (2) Hypotension: Status: Acute Additional A&P Information Acute hypoxic respiratory failure 2/2 PNA , COVID-19 PNA ruled out. COVID-19 Rapid antigen : negative, Covid PCR is Negative Urine legionella : Negative Bacterial Antigen panel : Negative Procalcitonin: Normal CT ruled out PE Blood Culture: NTD Influenza Negative Respiratory Viral Panel : MRSA PCR: CRP trending down Initially on Decadron and remdesivir empirically has been discontinued Cef and Levofloxacin She is not vaccinated Continue Ventolin Lasix 20 IV one-time dose. 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
[2021-06-25] MEDS: FUROsemide 10 mg/mL SDV 2mL 20 MG IVP (11:54)
[2021-06-25] MEDS: cefTRIAXone 1,000 MG in sodium chloride 0.9% (plus) 50 ML 100 MG IV (14:11)
[2021-06-25] MEDS: ipratropium-albuterol 3 mL Neb INHALATION ×2 (20:10→23:37)
[2021-06-25] MEDS: enoxaparin 40 mg/0.4 mL Syringe SUBCUT (20:59)
[2021-06-26] VITALS (15 sets, daily range): BP systolic 72–97; BP diastolic 43–61; PULSE 63–96; RESP 16–20; TEMP 36.4–37.4; O2SAT 80–97
[2021-06-26] MEDS: ipratropium-albuterol 3 mL Neb INHALATION ×5 (02:59→20:30)
[2021-06-26] MEDS: levoFLOXacin 750 mg Tablet PO (06:01)
[2021-06-26 06:03] LABS: Basophils % 0.4 %; Eosinophils # 0.1 10^3/uL (0.0-0.8); Eosinophils % 1.6 %; Hematocrit 37.1 % (37.0-47.0); Hemoglobin 12.6 g/dL (11.5-15.3); Lymphocytes # 1.6 10^3/uL (0.8-4.8); Lymphocytes % 19.2 %; Mean Corpuscular Hemoglobin 31.4 pg (28.0-34.0); Mean Corpuscular Volume 92.5 fL (81-99); Mean Platelet Volume 11.3 fL (7.4-10.4); Monocytes # 0.6 10^3/uL (0.2-0.9); Monocytes % 7.9 %; Neutrophils # 5.61 10^3/uL (1.8-7.7); Neutrophils % 69.2 %; Nucleated Red Blood Cells % 0 %; Platelet Count 403 10^3/cmm (130-400); Red Blood Count 4.01 10^6/uL (4.1-5.3); Red Cell Distribution Width 12.4 % (12.1-15.1); White Blood Count 8.1 10^3/uL (4.0-10.0)
[2021-06-26 06:24] LABS: Alanine Aminotransferase 20 U/L (0-33); Albumin Level 2.7 g/dL (3.5-5.2); Alkaline Phosphatase 77 IU/L (35-105); Anion Gap 13.6 (5-19); Aspartate Amino Transferase 21 U/L (0-32); Blood Urea Nitrogen 18 mg/dL (6-20); Calcium 8.2 mg/dL (8.5-10.5); Carbon Dioxide 24 mmol/L (22-29); Chloride 104 mmol/L (98-107); Cortisol Random 7.76 ug/dL (2.47-19.5); Globulin 3.4 g/dL (1.3-4.6); Glomerular Filtration Rate 64.1 mL/min (90-130); Glucose 98 mg/dL (65-115); NT Pro B Type Natriuretic Pept 226 pg/mL (0-125); Osmolality Calculated 288 mOsm/kg (285-295); Potassium 3.6 mmol/L (3.5-5.1); Sodium 138 mmol/L (136-145); Total Bilirubin 0.5 mg/dL (0.15-1.2); Total Protein 6.1 g/dL (6.6-8.7)
[2021-06-26] MEDS: midodrine 5 mg TABLET PO ×3 (08:53→21:02)
--- NOTE | 2021-06-26 10:45 | XR_ITS ---
WS: [id number] Portable AP upright chest, 06/26/2021 Clinical Data: pna Comparison: Portable chest, 06/23/2021 Findings: Patchy bilateral pulmonary opacities have not changed. The heart is normal. No pneumothorax is seen. XR/XR chest 1V portable [id number] Impression: No change in patchy bilateral pulmonary opacities consistent with pneumonia.
--- NOTE | 2021-06-26 10:53 | USCV_ITS ---
Kiara Oleary Age: 60 Gender: F : 1960 Exam Date: 06/26/2021 06:34 Ordering Phys: Oliverio Hughes MD Technologist: Shannon Mike Exam Location: [facility] – [place] Indication: SOB BP: 100 / 60 HR: 63 Rhythm: Sinus Technical Quality: Adequate MEASUREMENTS (Male / Female) Normal Values 2D ECHO LV Diastolic Diameter PLAX 3.3 cm 4.2 - 5.9 / 3.9 - 5.3 cm LV Systolic Diameter PLAX 2.5 cm IVS Diastolic Thickness 1.0 cm 0.6 - 1.0 / 0.6 - 0.9 cm IVS Systolic Thickness 1.1 cm LVPW Diastolic Thickness 0.8 cm 0.6 - 1.0 / 0.6 - 0.9 cm LVPW Systolic Thickness 1.5 cm RV Chamber Size 2.7 cm LVOT Diameter 2.0 cm LV Ejection Fraction 2D Teich 50.6 % LV Ejection Fraction MOD 2C 60.4 % LV Ejection Fraction 2C AL 61.1 % LA Diameter 2.1 cm LA Width 2.3 cm LA Height 3.5 cm RA Width 2.8 cm RA Height 3.5 cm Aorta at Sinotubular Diameter 2.1 cm M-MODE Aortic Annulus Diameter 2.5 cm LA Ao Ratio MM 0.9 MV E Point Septal Separation 0.4 cm DOPPLER AV Peak Velocity 119.0 cm/s LVOT Peak Velocity 90.0 cm/s AV Area Cont Eq vti 2.1 cm squared AV Area Cont Eq pk 2.4 cm squared MV Area PHT 5.0 cm squared Mitral E to A Ratio 0.8 MV E' Velocity 34.5 cm/s Mitral E to MV E' Ratio 8.5 Mitral E to LV E' Lateral Ratio 6.8 Mitral E to LV E' Septal Ratio 11.6 TV Peak E Velocity 36.0 cm/s Right Atrial Pressure 3.0 mmHg PV Peak Velocity 80.0 cm/s RV Acceleration Time 0.1 s RV Ejection Time 0.3 s RV AcT/ET 0.2 FINDINGS Left Ventricle Normal left ventricular size. LV systolic function is normal with EF of 55-60%. No regional wall motion abnormalities. Grade 1 diastolic dysfunction is noted Right Ventricle The right ventricle is normal in size and function. Right Atrium The right atrium is normal in size. Left Atrium The left atrium is normal in size. Mitral Valve Structurally normal mitral valve without significant stenosis or prolapse. There is no mitral regurgitation. Aortic Valve Structurally normal aortic valve without significant sclerosis or stenosis. There is no aortic regurgitation. Tricuspid Valve Structurally normal tricuspid valve without significant stenosis or regurgitation. Insufficient TR jet to calculate RVSP Pulmonic Valve Structurally normal pulmonic valve without significant stenosis. There is no pulmonic regurgitation. Pericardium Normal pericardium without effusion. Aorta Normal ascending aorta dimension. CONCLUSIONS LV systolic function is normal with EF of 55-60% Grade 1 diastolic dysfunction No significant valvular heart disease No comparison studies are available Km Zhang MD (Electronically Signed) Final Date: 26 June 2021 09:30 S
[2021-06-26] MEDS: guaiFENesin-dextromethorphan UDC 10 mL PO ×3 (11:40→18:09)
[2021-06-26] MEDS: cefTRIAXone 1,000 MG in sodium chloride 0.9% (plus) 50 ML 100 MG IV (11:40)
--- NOTE | 2021-06-26 12:23 | P.PN_ITS ---
Subjective Subjective: Interval history: Patient continue to complain of dizziness as well as cough and SOB. Medications: Reviewed: Yes Vitals/I&O/Wt Last Vital Signs Temp 97.6 F 06/26/21 08:00 Pulse 78 06/26/21 11:59 Resp 18 06/26/21 11:49 BP 77/48 06/26/21 08:32 Pulse Ox 80 L 06/26/21 11:49 06/25/21 06/26/21 06/26/21 22:59 06:59 14:59 Intake Total 170 / 410 60 / 470 50 / 50 Output Total 500 / 1500 Balance -330 / -1090 60 / -1030 50 / 50 Physical Exam Const: COMMON NORMALS: patient oriented x3 HENMT: COMMON NORMALS: normocephalic and atraumatic HEAD & SCALP: normocephalic and atraumatic Resp: COMMON NORMALS: clear to auscultation bilaterally AUSCULTATION: clear to auscultation bilaterally Cardio: COMMON NORMALS: regular rate, regular rhythm, S1 normal heart sound present, S2 normal heart sound present, No gallops present (Cardio), No murmurs present (Cardio), No rub (Cardio) and Peripheral pulses 2+ throughout RATE: regular rate RHYTHM: regular rhythm HEART SOUNDS: S1 normal heart sound present and S2 normal heart sound present PERIPHERAL PULSES: Peripheral pulses 2+ throughout GI: COMMON NORMALS: Normal to inspection, nondistended, normoactive bowel sounds present, Soft to palpation, non-tender, No hepatosplenomegaly present and no masses AUSCULTATION: Yes normoactive bowel sounds PALPATION: Yes Soft to palpation and Yes No hepatosplenomegaly present RECTAL EXAM: deferred Extremity: COMMON NORMALS: no clubbing, cyanosis or edema and no pedal edema Neuro: COMMON NORMALS: patient oriented x3 Data : 06/26/21 05:28 06/26/21 05:28 Micro: Microbiology 06/20/21 15:39 Blood Culture - Final Blood NO GROWTH AFTER 5 DAYS 06/20/21 14:38 Blood Culture - Final Blood NO GROWTH AFTER 5 DAYS 06/24/21 23:45 Legionella Urinary Antigen - Final Urine,Voided Bacterial Antigens - Final A&P Assessment and plan (1) Acute respiratory failure with hypoxia: Status: Acute (2) Hypotension: Status: Acute Additional A&P Information Acute hypoxic respiratory failure 2/2 PNA , COVID-19 PNA ruled out. COVID-19 Rapid antigen : negative, Covid PCR is Negative Urine legionella : Negative Bacterial Antigen panel : Negative Procalcitonin: Normal CT ruled out PE Blood Culture: NTD Influenza Negative Respiratory Viral Panel : MRSA PCR: CRP trending down Initially on Decadron and remdesivir empirically has been discontinued Vancomycin , Cef and Levofloxacin She is not vaccinated Continue Ventolin Hypotension: TSH: Normal Random Cortisol : 1.10 Follow Am Cortisol Will plan for SIM Test Midodrine 5 mg po TID 2 D Echo : Patient lives alone and she does not want to go to any senior living, will plan to send her home once we know her PCR result and PT evaluation Regular diet DVT prophylaxis Lovenox Full code Attestations Medical Necessity Statement*: Patient needs to be in hospital for the management of PNA Coding Level of Care Code Acute Manager Investigations for [facility] Fwd Exam Detailed Diagnoses Acute respiratory failure with hypoxia J96.01 Hypotension I95.9
--- NOTE | 2021-06-26 14:18 | PC.RESP ---
Pt attempted home o2 evaluation. Started on 4lpm n/c, pt walked less than 2 ft, c/o dizziness, sats 68%, pt returned to bed on 6lpm. Dr atkinson
[2021-06-26] MEDS: vancomycin 750 MG in sodium chloride 0.9% 250 ML 250 MG IV (16:12)
--- NOTE | 2021-06-26 16:33 | PC.NURSE ---
Shift Note Frequent safety and comfort rounds continue. Orders and nursing care completed as indicated. Patient monitored for response to intervention and treatment(s). Education provided includes new medication-vancomycin, pantient verbalized understanding possible side effects/reactions and indications. Patient did have incident of desaturating when with RT this afternoon, patient subsequently titrated up to 6L HF nasal cannula. Resting well in bed at this time.call light within reach. Will continue to monitor.
[2021-06-26] MEDS: enoxaparin 40 mg/0.4 mL Syringe SUBCUT (21:02)
[2021-06-27] VITALS (17 sets, daily range): BP systolic 92–105; BP diastolic 47–91; PULSE 62–92; RESP 15–24; TEMP 36.7–37.2; O2SAT 92–99
[2021-06-27] MEDS: ipratropium-albuterol 3 mL Neb INHALATION ×4 (00:20→15:01)
--- NOTE | 2021-06-27 00:44 | XRR_ITS ---
PROCEDURE INFORMATION: Exam: XR Chest Exam date and time: 06/27/2021 12:44 AM Age: 60 years old Clinical indication: Shortness of breath; Patient HX: Worsening hypoxia. Switched to hi flow oxygen. ; Additional info: Acute shortness of breath TECHNIQUE: Imaging protocol: XR of the chest. Views: 1 view. COMPARISON: CR XR chest 1V portable [id number] 06/26/2021 11:01 AM FINDINGS: Lungs: Multifocal bilateral pulmonary impact opacities which may be seen with viral pneumonia. Findings appears similar to prior exam. Pleural spaces: Unremarkable. No pleural effusion. No pneumothorax. Heart/Mediastinum: No cardiomegaly. Bones/joints: No acute fracture. XR/XR chest 1V portable [id number] IMPRESSION: No interval change.
--- NOTE | 2021-06-27 00:58 | PC.NURSE ---
Entered pts room and pt was sitting on the commode, minimally responsive. Vitals obtained BP 104/87 and O2 of 57%. Non rebreather placed and Dr notified. Pt O2 slowly came up to mid 80s and Dr at bedside. Starting pt on high flow O2 with Bi pap on stand by. Orders for D dimer, CXR and ABGs obtained. Pt helped to the bed from the commode. Pt is AOx3 and O2 now at 92%. Will continue to monitor this patient closely and educated pt on the importance of getting help to the commode.
[2021-06-27] MEDS: guaiFENesin-dextromethorphan UDC 10 mL PO ×7 (01:09→23:23)
[2021-06-27 01:15] LABS: ABG PCO2 37.9 mmHg (35-45); ABG PH Result 7.43 (7.35-7.45); Arterial Blood Gas Hematocrit 48.5 % (37-47); Blood Gas Allen Test Pos; Blood Gas Sample Site Radial, right; Blood Gas Sample Type Arterial; HCO3 ABG 25.2 mmol/L (22-26); Oxygen Device NRB; PO2 ABG 91.2 mmHg (80.0-100.0)
[2021-06-27 01:30] LABS: D Dimer 1.92 ug/mIFEU (0-0.59)
[2021-06-27 01:49] LABS: Alanine Aminotransferase 19 U/L (0-33); Alkaline Phosphatase 86 IU/L (35-105); Anion Gap 16.6 (5-19); Aspartate Amino Transferase 29 U/L (0-32); Blood Urea Nitrogen 12 mg/dL (6-20); Calcium 8.4 mg/dL (8.5-10.5); Carbon Dioxide 23 mmol/L (22-29); Chloride 100 mmol/L (98-107); Globulin 3.4 g/dL (1.3-4.6); Glomerular Filtration Rate 85.6 mL/min (90-130); Glucose 111 mg/dL (65-115); NT Pro B Type Natriuretic Pept 116 pg/mL (0-125); Osmolality Calculated 282 mOsm/kg (285-295); Potassium 3.6 mmol/L (3.5-5.1); Sodium 136 mmol/L (136-145); Total Bilirubin 0.7 mg/dL (0.15-1.2); Total Protein 6.4 g/dL (6.6-8.7)
[2021-06-27] MEDS: levoFLOXacin 750 mg Tablet PO (05:33)
--- NOTE | 2021-06-27 07:48 | CT_ITS ---
WS: [id number] CT CHEST ANGIOGRAPHY WITH REFORMATS HISTORY: R/O P/E TECHNIQUE: Contiguous axial images are obtained through the chest during arterial injection of intrav enous contrast. Images are reconstructed to evaluate the pulmonary arteries. MIP imaging also reviewe d. All CT scans at [facility] use at least one of these dose optimization techniques: aut omated exposure control; mA and/or kV adjustment per patient size (includes targeted exams where dose is matched to clinical indication); or iterative reconstruction. CONTRAST: Omnipaque 350; 95 mL IV. DLP: 441.13 mGy.cm COMPARISON: 06/20/2020 Very good opacification of the pulmonary arteries. No filling defects in the pulmonary arteries. Ther e is very mild enlargement of the pulmonary artery. Mild atherosclerosis aorta with no aneurysm. Hear t is enlarged. No pericardial or pleural effusions. There is significant bilateral, multilobar pulmonary opacifications. The areas of groundglass consoli dation described on 06/20/2021 have become more consolidated. Majority of the opacifications are more solid. No pneumothorax. Mediastinal and hilar lymphadenopathy with mild progression and is probably r eactive. Visualized portion of the liver, spleen and gallbladder are negative. No adrenal mass. Very slight hy perplasia of the LEFT adrenal gland. Increase in thoracic kyphosis. Mild anterior wedging of one of the midthoracic vertebral bodies. CT/CT angio chest PE protcl [id number] IMPRESSION: 1. No pulmonary mass. 2. Progressive multi lobar opacifications. Groundglass opacifications have now become more consolidated consistent with progressive Covid 19 pneumonia. 3. No pneumothorax.
[2021-06-27 09:59] LABS: SARS Covid-2 Antigen Negative (Negative)
[2021-06-27] MEDS: vancomycin 750 MG in sodium chloride 0.9% 250 ML 250 MG IV (10:50)
[2021-06-27] MEDS: midodrine 5 mg TABLET PO ×3 (10:50→20:58)
[2021-06-27] MEDS: piperacillin-tazobactam 3.375 GM in sodium chloride 0.9% (plus) 50 ML IV ×2 (13:06→20:58)
--- NOTE | 2021-06-27 18:56 | PM.PN ---
Subjective Subjective: Interval history: Patient was seen and examined this morning, she had a rough night, was desaturating with minimal exertion, had to be placed on high flow oxygen through nasal cannula at night. X-ray chest and CT angio was done: ABG was done: pH 7.43, PCO2 37, PO2:91, FiO2:100 % Medications: Reviewed: Yes Vitals/I&O/Wt Last Vital Signs Temp 98.0 F 06/27/21 16:00 Pulse 87 06/27/21 16:00 Resp 17 06/27/21 16:00 BP 92/59 06/27/21 16:00 Pulse Ox 92 06/27/21 16:00 06/27/21 06/27/21 06/27/21 06:59 14:59 22:59 Intake Total 120 / 120 120 / 240 Output Total 400 / 900 Balance -400 / -100 120 / 120 120 / 240 Physical Exam Const: COMMON NORMALS: patient oriented x3 HENMT: COMMON NORMALS: normocephalic and atraumatic HEAD & SCALP: normocephalic and atraumatic Resp: OTHER: Bilateral basal crepitus. Cardio: COMMON NORMALS: regular rate, regular rhythm, S1 normal heart sound present, S2 normal heart sound present, No gallops present (Cardio), No murmurs present (Cardio), No rub (Cardio) and Peripheral pulses 2+ throughout RATE: regular rate RHYTHM: regular rhythm HEART SOUNDS: S1 normal heart sound present and S2 normal heart sound present PERIPHERAL PULSES: Peripheral pulses 2+ throughout GI: COMMON NORMALS: Normal to inspection, nondistended, normoactive bowel sounds present, Soft to palpation, non-tender, No hepatosplenomegaly present and no masses AUSCULTATION: Yes normoactive bowel sounds PALPATION: Yes Soft to palpation and Yes No hepatosplenomegaly present RECTAL EXAM: deferred Extremity: COMMON NORMALS: no clubbing, cyanosis or edema and no pedal edema Neuro: COMMON NORMALS: patient oriented x3 Data : 06/26/21 05:28 06/27/21 00:56 Micro: Microbiology 06/25/21 10:43 MRSA Culture - Final Nose A&P Assessment and plan (1) Acute respiratory failure with hypoxia: Status: Acute (2) Hypotension: Status: Acute Additional A&P Information Acute hypoxic respiratory failure 2/2 PNA , COVID-19 PNA ruled out. COVID-19 Rapid antigen : negative, Covid PCR is Negative Urine legionella : Negative Bacterial Antigen panel : Negative Procalcitonin: Normal Repeat CT ruled out PE: Progressive multi lobar opacifications. Groundglass opacifications have now become more consolidated consistent with progressive Covid 19 pneumonia. Blood Culture: NTD Influenza Negative Respiratory Viral Panel : MRSA PCR: Negative CRP trending down Initially on Decadron and remdesivir empirically has been discontinued. Initially on vancomycin , Cef and Levofloxacin. Ceftriaxone was discontinued on 06/27. Zosyn has been started. She is not vaccinated DuoNebs Hypotension: TSH: Normal Random Cortisol : 1.10 Follow Am Cortisol : Normal Will plan for SIM Test Midodrine 5 mg po TID 2 D Echo :LV systolic function is normal with EF of 55-60%,Grade 1 diastolic dysfunction No significant valvular heart disease. Patient lives alone and she does not want to go to any group home. Regular diet DVT prophylaxis Lovenox Full code Attestations Medical Necessity Statement*: Patient needs to be in hospital for management of pneumonia. Coding Level of Care Code Acute Community Outreach Coordinator for [facility] Diagnoses Acute respiratory failure with hypoxia J96.01 Hypotension I95.9
--- NOTE | 2021-06-27 20:27 | PC.NURSE ---
shift summary pt in am had to use to BSC when this nurse assisted pt, while pt was on the BSC her oxygen saturation dropped to 78% this nurse then assisted pt back to bed and she was 63%. After pt was in bed and relaxing her saturation began to increase. was informed and a jordan was ordered and placed by JOSEPH Khan. pt is now on 3 liters N/C instead of the heated high flow she was on this am. pt is doing well on the nasal cannula and states she feels better than she has in a few days. no other changes this shift.
[2021-06-27] MEDS: enoxaparin 40 mg/0.4 mL Syringe SUBCUT (20:58)
[2021-06-28] VITALS (15 sets, daily range): BP systolic 93–124; BP diastolic 55–65; PULSE 67–122; RESP 14–24; TEMP 36.7–37.3; O2SAT 88–95
[2021-06-28] MEDS: guaiFENesin-dextromethorphan UDC 10 mL PO ×5 (02:21→18:35)
--- NOTE | 2021-06-28 02:23 | PC.RESP ---
patient eating a snack and said she didnt need a breathing tx at this time. Spo2 checked on the 3l nc- 93%
[2021-06-28] MEDS: vancomycin 750 MG in sodium chloride 0.9% 250 ML 250 MG IV ×2 (05:06→23:23)
[2021-06-28 05:42] LABS: Basophils % 0.2 %; Hematocrit 37.5 % (37.0-47.0); Hemoglobin 12.3 g/dL (11.5-15.3); Lymphocytes # 0.6 10^3/uL (0.8-4.8); Lymphocytes % 5.1 %; Mean Corpuscular HGB Conc 32.8 g/dL (30.0-36.0); Mean Corpuscular Hemoglobin 31.4 pg (28.0-34.0); Mean Corpuscular Volume 95.7 fL (81-99); Mean Platelet Volume 10.9 fL (7.4-10.4); Monocytes # 0.3 10^3/uL (0.2-0.9); Monocytes % 2.3 %; Neutrophils # 9.82 10^3/uL (1.8-7.7); Neutrophils % 91.2 %; Nucleated Red Blood Cells % 0 %; Platelet Count 355 10^3/cmm (130-400); Red Blood Count 3.92 10^6/uL (4.1-5.3); Red Cell Distribution Width 12.9 % (12.1-15.1); White Blood Count 10.8 10^3/uL (4.0-10.0)
[2021-06-28] MEDS: piperacillin-tazobactam 3.375 GM in sodium chloride 0.9% (plus) 50 ML IV ×3 (06:00→20:30)
[2021-06-28] MEDS: levoFLOXacin 750 mg Tablet PO (06:01)
[2021-06-28 06:12] LABS: Alanine Aminotransferase 15 U/L (0-33); Albumin Level 2.7 g/dL (3.5-5.2); Alkaline Phosphatase 78 IU/L (35-105); Anion Gap 13.1 (5-19); Aspartate Amino Transferase 24 U/L (0-32); Blood Urea Nitrogen 11 mg/dL (6-20); Calcium 8.5 mg/dL (8.5-10.5); Carbon Dioxide 21 mmol/L (22-29); Chloride 106 mmol/L (98-107); Globulin 3.7 g/dL (1.3-4.6); Glomerular Filtration Rate 102.3 mL/min (90-130); Glucose 155 mg/dL (65-115); NT Pro B Type Natriuretic Pept 382 pg/mL (0-125); Osmolality Calculated 285 mOsm/kg (285-295); Potassium 4.1 mmol/L (3.5-5.1); Sodium 136 mmol/L (136-145); Total Bilirubin 0.6 mg/dL (0.15-1.2); Total Protein 6.4 g/dL (6.6-8.7)
[2021-06-28] MEDS: ipratropium-albuterol 3 mL Neb INHALATION ×4 (08:38→20:40)
[2021-06-28] MEDS: midodrine 5 mg TABLET PO ×3 (09:04→20:30)
--- NOTE | 2021-06-28 14:21 | P.PN_ITS ---
Subjective Subjective: Interval history: Patient was seen and examined this morning, states that her SOB has improved, currently saturating well on 2ls, still fells very weak,have encouraged her to move out of bed to chair. Medications: Reviewed: Yes Vitals/I&O/Wt Last Vital Signs Temp 98.5 F 06/28/21 11:51 Pulse 122 H 06/28/21 12:02 Resp 24 H 06/28/21 11:55 BP 93/55 06/28/21 11:51 Pulse Ox 88 L 06/28/21 11:55 06/27/21 06/28/21 06/28/21 22:59 06:59 14:59 Intake Total 420 / 540 420 / 960 50 / 50 Output Total 1000 / 1000 Balance 420 / 540 -580 / -40 50 / 50 Physical Exam Const: COMMON NORMALS: patient oriented x3 HENMT: COMMON NORMALS: normocephalic and atraumatic HEAD & SCALP: normocephalic and atraumatic Resp: OTHER: Bilateral basal crepitus. Cardio: COMMON NORMALS: regular rate, regular rhythm, S1 normal heart sound present, S2 normal heart sound present, No gallops present (Cardio), No murmurs present (Cardio), No rub (Cardio) and Peripheral pulses 2+ throughout RATE: regular rate RHYTHM: regular rhythm HEART SOUNDS: S1 normal heart sound present and S2 normal heart sound present PERIPHERAL PULSES: Peripheral pulses 2+ throughout GI: COMMON NORMALS: Normal to inspection, nondistended, normoactive bowel sounds present, Soft to palpation, non-tender, No hepatosplenomegaly present and no masses AUSCULTATION: Yes normoactive bowel sounds PALPATION: Yes Soft to palpation and Yes No hepatosplenomegaly present RECTAL EXAM: deferred Extremity: COMMON NORMALS: no clubbing, cyanosis or edema and no pedal edema Neuro: COMMON NORMALS: patient oriented x3 Urinary Catheter Management^: Park: Cath Placed During This Visit: yes Reason for Continuing Indwelling Catheter: Other Urinary Catheter Date of Insertion: 06/27/21 Urinary Catheter Time of Insertion: 11:00 Data : 06/28/21 05:06 06/28/21 05:06 Micro: Microbiology 06/25/21 10:43 MRSA Culture - Final Nose A&P Assessment and plan (1) Acute respiratory failure with hypoxia: Status: Acute (2) Hypotension: Status: Acute Additional A&P Information Acute hypoxic respiratory failure 2/2 PNA , COVID-19 PNA ruled out. COVID-19 Rapid antigen : negative, Covid PCR is Negative Urine legionella : Negative Bacterial Antigen panel : Negative Procalcitonin: Normal Repeat CT ruled out PE: Progressive multi lobar opacifications. Groundglass opacifications have now become more consolidated consistent with progressive Covid 19 pneumonia. Blood Culture: NTD Influenza Negative Respiratory Viral Panel : MRSA PCR: Negative Sputum culture : CRP trending down Initially on Decadron and remdesivir empirically has been discontinued. Initially on vancomycin , Cef and Levofloxacin. Ceftriaxone was discontinued on 06/27. Zosyn has been started. Solumedrol 60 mg I.V daily She is not vaccinated DuoNebs Hypotension: TSH: Normal Random Cortisol : 1.10 Am Cortisol : Normal Will plan for SIM Test Midodrine 5 mg po TID 2 D Echo :LV systolic function is normal with EF of 55-60%,Grade 1 diastolic dysfunction No significant valvular heart disease. Patient lives alone and she does not want to go to any senior living. Regular diet DVT prophylaxis Lovenox Full code Attestations Medical Necessity Statement*: Patient needs to be in hospital for the management of PNA Coding Level of Care Code Acute Guest Services Associate for [facility] Diagnoses Acute respiratory failure with hypoxia J96.01 Hypotension I95.9
[2021-06-28 16:50] LABS: Adenovirus Not Detected (Not Detected); Human Metapneumovirus Not Detected (Not Detected); Human Parainflu Virus 1 Not Detected (Not Detected); Human Parainflu Virus 2 Not Detected (Not Detected); Human Parainflu Virus 3 Not Detected (Not Detected); Human Rsv A Not Detected (Not Detected); Influenza A Not Detected (Not Detected); Influenza B Not Detected (Not Detected); Rhinovirus/Enterovirus Not Detected (Not Detected)
[2021-06-28 22:50] LABS: Vancomycin Trough 6.2 ug/mL (10-15)
[2021-06-28] MEDS: enoxaparin 40 mg/0.4 mL Syringe SUBCUT (23:16)
[2021-06-29] VITALS (14 sets, daily range): BP systolic 94–125; BP diastolic 49–64; PULSE 69–104; RESP 15–18; TEMP 36.6–37.2; O2SAT 93–97
[2021-06-29] MEDS: ipratropium-albuterol 3 mL Neb INHALATION ×7 (02:09→23:18)
[2021-06-29] MEDS: piperacillin-tazobactam 3.375 GM in sodium chloride 0.9% (plus) 50 ML IV ×3 (05:05→20:54)
[2021-06-29 05:23] LABS: Basophils % 0.3 %; Eosinophils % 0.2 %; Hematocrit 33.7 % (37.0-47.0); Lymphocytes # 1.3 10^3/uL (0.8-4.8); Mean Corpuscular HGB Conc 32.6 g/dL (30.0-36.0); Mean Corpuscular Hemoglobin 31.5 pg (28.0-34.0); Mean Corpuscular Volume 96.6 fL (81-99); Mean Platelet Volume 10.6 fL (7.4-10.4); Monocytes # 0.9 10^3/uL (0.2-0.9); Neutrophils % 79.5 %; Nucleated Red Blood Cells % 0 %; Platelet Count 310 10^3/cmm (130-400); Red Blood Count 3.49 10^6/uL (4.1-5.3); Red Cell Distribution Width 13.2 % (12.1-15.1); White Blood Count 11.6 10^3/uL (4.0-10.0)
[2021-06-29 05:55] LABS: Anion Gap 11.8 (5-19); Blood Urea Nitrogen 14 mg/dL (6-20); Carbon Dioxide 24 mmol/L (22-29); Chloride 107 mmol/L (98-107); Glomerular Filtration Rate 85.6 mL/min (90-130); Glucose 105 mg/dL (65-115); Osmolality Calculated 289 mOsm/kg (285-295); Potassium 3.8 mmol/L (3.5-5.1); Sodium 139 mmol/L (136-145)
--- NOTE | 2021-06-29 06:51 | PC.RESP ---
RT Shift Note Frequent safety and respiratory rounds continue. Orders completed as indicated. Patient monitored pre and post treatments throughout shift. Patient did tolerate treatments appropriately. Condition Improved. Patient and/or administrative representative educated on respiratory treatment and medications. Patient and/or administrative representative verbalized understanding. Will continue to monitor patient progress.
[2021-06-29] MEDS: midodrine 5 mg TABLET PO ×3 (08:59→20:54)
[2021-06-29] MEDS: guaiFENesin-dextromethorphan UDC 10 mL PO ×5 (08:59→20:54)
[2021-06-29] MEDS: vancomycin 750 MG in sodium chloride 0.9% 250 ML 250 MG IV (11:27)
--- NOTE | 2021-06-29 15:57 | PM.PN ---
Subjective Subjective: Interval history: Patient was seen and examined this morning, states that her SOB has improved, a lot currently saturating well on 2-3ls,she is willing to try sitting to chair today. Medications: Reviewed: Yes Vitals/I&O/Wt Last Vital Signs Temp 98.9 F 06/29/21 12:00 Pulse 92 06/29/21 13:20 Resp 16 06/29/21 13:20 BP 94/49 06/29/21 12:00 Pulse Ox 96 06/29/21 13:20 06/29/21 06/29/21 06/29/21 06:59 14:59 22:59 Intake Total 780 / 1360 420 / 420 Output Total 1000 / 1000 300 / 300 Balance -220 / 360 120 / 120 Physical Exam Const: COMMON NORMALS: patient oriented x3 HENMT: COMMON NORMALS: normocephalic and atraumatic HEAD & SCALP: normocephalic and atraumatic Resp: COMMON NORMALS: clear to auscultation bilaterally AUSCULTATION: clear to auscultation bilaterally OTHER: Bilateral basal crepitus. Cardio: COMMON NORMALS: regular rate, regular rhythm, S1 normal heart sound present, S2 normal heart sound present, No gallops present (Cardio), No murmurs present (Cardio), No rub (Cardio) and Peripheral pulses 2+ throughout RATE: regular rate RHYTHM: regular rhythm HEART SOUNDS: S1 normal heart sound present and S2 normal heart sound present PERIPHERAL PULSES: Peripheral pulses 2+ throughout GI: COMMON NORMALS: Normal to inspection, nondistended, normoactive bowel sounds present, Soft to palpation, non-tender, No hepatosplenomegaly present and no masses AUSCULTATION: Yes normoactive bowel sounds PALPATION: Yes Soft to palpation and Yes No hepatosplenomegaly present RECTAL EXAM: deferred Extremity: COMMON NORMALS: no clubbing, cyanosis or edema and no pedal edema Neuro: COMMON NORMALS: patient oriented x3 Urinary Catheter Management^: Park: Cath Placed During This Visit: yes Reason for Continuing Indwelling Catheter: Required Immobilization for Trauma or Surgery or Anesthesia Urinary Catheter Date of Insertion: 06/27/21 Urinary Catheter Time of Insertion: 11:00 Data : 06/29/21 05:00 06/29/21 05:00 A&P Assessment and plan (1) Acute respiratory failure with hypoxia: Acute hypoxic respiratory failure secondary to likely COVID-19, PCR is pending, saturating well on 4 to 5 L nasal cannula She is afebrile, I would continue Decadron and remdesivir for now High inflammatory markers noted If her PCR comes back positive and she is requiring higher O2 she might qualify for interleukin-6 inhibitor dose Status: Acute (2) Hypotension: Status: Acute Additional A&P Information Acute hypoxic respiratory failure 2/2 PNA , COVID-19 PNA ruled out. COVID-19 Rapid antigen : negative, Covid PCR is Negative Urine legionella : Negative Bacterial Antigen panel : Negative Procalcitonin: Normal Repeat CT ruled out PE: Progressive multi lobar opacifications. Groundglass opacifications have now become more consolidated consistent with progressive Covid 19 pneumonia. Blood Culture: NTD Influenza Negative Respiratory Viral Panel : MRSA PCR: Negative Sputum culture : CRP trending down Initially on Decadron and remdesivir empirically has been discontinued. Initially on vancomycin , Cef and Levofloxacin. Ceftriaxone was discontinued on 06/27. Zosyn has been started. Solumedrol 60 mg I.V daily She is not vaccinated DuoNebs Hypotension: TSH: Normal Random Cortisol : 1.10 Am Cortisol : Normal Will plan for SIM Test Midodrine 5 mg po TID 2 D Echo :LV systolic function is normal with EF of 55-60%,Grade 1 diastolic dysfunction No significant valvular heart disease. Patient lives alone and she does not want to go to any custodial. Regular diet DVT prophylaxis Lovenox Full code Attestations Medical Necessity Statement*: Patient needs to be in hospital for the management of PNA Coding Level of Care Code Acute Research Program Intern for [facility] Diagnoses Acute respiratory failure with hypoxia J96.01 Hypotension I95.9
[2021-06-29] MEDS: enoxaparin 40 mg/0.4 mL Syringe SUBCUT (20:54)
[2021-06-30] VITALS (16 sets, daily range): BP systolic 95–132; BP diastolic 58–71; PULSE 72–105; RESP 16–18; TEMP 36.4–36.9; O2SAT 88–95
[2021-06-30] MEDS: vancomycin 750 MG in sodium chloride 0.9% 250 ML 250 MG IV ×2 (00:40→11:57)
[2021-06-30] MEDS: piperacillin-tazobactam 3.375 GM in sodium chloride 0.9% (plus) 50 ML IV ×3 (04:41→22:31)
[2021-06-30 05:04] LABS: Basophils % 0.2 %; Hematocrit 34.7 % (37.0-47.0); Hemoglobin 11.2 g/dL (11.5-15.3); Lymphocytes # 1.1 10^3/uL (0.8-4.8); Lymphocytes % 9.5 %; Mean Corpuscular HGB Conc 32.3 g/dL (30.0-36.0); Mean Corpuscular Hemoglobin 31.1 pg (28.0-34.0); Mean Corpuscular Volume 96.4 fL (81-99); Mean Platelet Volume 10.8 fL (7.4-10.4); Monocytes % 9.1 %; Neutrophils # 9.15 10^3/uL (1.8-7.7); Neutrophils % 79.8 %; Nucleated Red Blood Cells % 0 %; Platelet Count 274 10^3/cmm (130-400); Red Cell Distribution Width 13.2 % (12.1-15.1); White Blood Count 11.5 10^3/uL (4.0-10.0)
[2021-06-30 05:32] LABS: Anion Gap 12.7 (5-19); Blood Urea Nitrogen 11 mg/dL (6-20); Calcium 8.1 mg/dL (8.5-10.5); Carbon Dioxide 23 mmol/L (22-29); Chloride 107 mmol/L (98-107); Glomerular Filtration Rate 102.3 mL/min (90-130); Glucose 115 mg/dL (65-115); Osmolality Calculated 288 mOsm/kg (285-295); Potassium 3.7 mmol/L (3.5-5.1); Sodium 139 mmol/L (136-145)
[2021-06-30] MEDS: ipratropium-albuterol 3 mL Neb INHALATION ×4 (07:50→20:13)
--- NOTE | 2021-06-30 08:24 | XRR_ITS ---
PROCEDURE INFORMATION: Exam: XR Chest Exam date and time: 06/30/2021 8:24 AM Age: 60 years old Clinical indication: Condition or disease; Lung condition and disease; Patient HX: Pneumonia f/u; Additional info: Pna TECHNIQUE: Imaging protocol: XR of the chest. Views: 1 view. COMPARISON: CR (CHEST, ) 06/27/2021 1:00 AM FINDINGS: Lungs: Peripheral opacities throughout both lungs again noted. This appears slightly less conspicuous than prior exam. Pleural spaces: Unremarkable. No pleural effusion. No pneumothorax. Heart/Mediastinum: Unremarkable. No cardiomegaly. Bones/joints: Unremarkable. XR/XR chest 1V portable [id number] IMPRESSION: Peripheral opacities throughout both lungs again noted. This appears slightly less conspicuous than prior exam.
[2021-06-30] MEDS: guaiFENesin-dextromethorphan UDC 10 mL PO ×4 (09:07→22:32)
[2021-06-30] MEDS: midodrine 5 mg TABLET PO ×3 (09:07→22:31)
--- NOTE | 2021-06-30 11:20 | P.PN_ITS ---
Subjective Subjective: Interval history: Patient was seen and examined this morning, states that her SOB has improved, a lot currently saturating well on 2- 3ls.Appetite has improved, her overall energy level has improved. Medications: Reviewed: Yes Vitals/I&O/Wt Last Vital Signs Temp 97.6 F 06/30/21 07:53 Pulse 75 06/30/21 07:58 Resp 16 06/30/21 07:58 BP 97/66 06/30/21 07:53 Pulse Ox 92 06/30/21 08:06 06/29/21 06/30/21 06/30/21 22:59 06:59 14:59 Intake Total 170 / 590 300 / 890 50 / 50 Output Total 1800 / 2100 500 / 2600 Balance -1630 / -1510 -200 / -1710 50 / 50 Physical Exam Const: COMMON NORMALS: patient oriented x3 HENMT: COMMON NORMALS: normocephalic and atraumatic HEAD & SCALP: normocephalic and atraumatic Resp: COMMON NORMALS: clear to auscultation bilaterally AUSCULTATION: clear to auscultation bilaterally Cardio: COMMON NORMALS: regular rate, regular rhythm, S1 normal heart sound present, S2 normal heart sound present, No gallops present (Cardio), No murmurs present (Cardio), No rub (Cardio) and Peripheral pulses 2+ throughout RATE: regular rate RHYTHM: regular rhythm HEART SOUNDS: S1 normal heart sound present and S2 normal heart sound present PERIPHERAL PULSES: Peripheral pulses 2+ throughout GI: COMMON NORMALS: Normal to inspection, nondistended, normoactive bowel sounds present, Soft to palpation, non-tender, No hepatosplenomegaly present and no masses AUSCULTATION: Yes normoactive bowel sounds PALPATION: Yes Soft to palpation and Yes No hepatosplenomegaly present RECTAL EXAM: deferred Extremity: COMMON NORMALS: no clubbing, cyanosis or edema and no pedal edema Neuro: COMMON NORMALS: patient oriented x3 Urinary Catheter Management^: Park: Cath Placed During This Visit: yes Reason for Continuing Indwelling Catheter: Required Immobilization for Trauma or Surgery or Anesthesia Urinary Catheter Date of Insertion: 06/27/21 Urinary Catheter Time of Insertion: 11:00 Data : 06/30/21 04:42 06/30/21 04:42 A&P Assessment and plan (1) Acute respiratory failure with hypoxia: Acute hypoxic respiratory failure secondary to likely COVID-19, PCR is pending, saturating well on 4 to 5 L nasal cannula She is afebrile, I would continue Decadron and remdesivir for now High inflammatory markers noted If her PCR comes back positive and she is requiring higher O2 she might qualify for interleukin-6 inhibitor dose Status: Acute (2) Hypotension: Status: Acute Additional A&P Information Acute hypoxic respiratory failure 2/2 PNA , COVID-19 PNA ruled out. COVID-19 Rapid antigen : negative, Covid PCR is Negative Urine legionella : Negative Bacterial Antigen panel : Negative Procalcitonin: Normal Repeat CT ruled out PE: Progressive multi lobar opacifications. Groundglass opacifications have now become more consolidated consistent with progressive Covid 19 pneumonia. Blood Culture: NTD Influenza Negative Respiratory Viral Panel : Negative MRSA PCR: Negative Sputum culture : Initially on Decadron and remdesivir empirically has been discontinued. Initially on vancomycin , Cef and Levofloxacin. Ceftriaxone was discontinued on 06/27. Zosyn has been started. Initially on Solumedrol 60 mg I.V daily was stopped She is not vaccinated DuoNebs Hypotension: TSH: Normal Am Cortisol : 7.76 Will plan for SIM Test Midodrine 5 mg po TID 2 D Echo :LV systolic function is normal with EF of 55-60%,Grade 1 diastolic dysfunction No significant valvular heart disease. Patient lives alone and she does not want to go to any fpc. Regular diet DVT prophylaxis Lovenox Full code Attestations Medical Necessity Statement*: Patient needs to be in hospital for the management of PNA Coding Level of Care Code Acute Administrative Secretary for [facility] Diagnoses Acute respiratory failure with hypoxia J96.01 Hypotension I95.9
--- NOTE | 2021-06-30 12:51 | PC.NURSE ---
bowel movement in bedpan, medium size, loose consistency.
--- NOTE | 2021-06-30 17:48 | PC.NURSE ---
bowel movement #2 for today, medium size, loose consistency, brown color. went in bedpan with staff assist
[2021-06-30] MEDS: enoxaparin 40 mg/0.4 mL Syringe SUBCUT (22:32)
[2021-07-01] VITALS (13 sets, daily range): BP systolic 92–112; BP diastolic 37–68; PULSE 68–95; RESP 16–18; TEMP 36.6–37.4; O2SAT 91–97
[2021-07-01] MEDS: guaiFENesin-dextromethorphan UDC 10 mL PO ×6 (02:31→22:29)
[2021-07-01] MEDS: piperacillin-tazobactam 3.375 GM in sodium chloride 0.9% (plus) 50 ML IV ×3 (05:25→21:12)
[2021-07-01 05:34] LABS: Anion Gap 10.6 (5-19); Blood Urea Nitrogen 9 mg/dL (6-20); Calcium 7.9 mg/dL (8.5-10.5); Carbon Dioxide 24 mmol/L (22-29); Chloride 109 mmol/L (98-107); Glomerular Filtration Rate 85.6 mL/min (90-130); Glucose 73 mg/dL (65-115); Osmolality Calculated 287 mOsm/kg (285-295); Potassium 3.6 mmol/L (3.5-5.1); Sodium 140 mmol/L (136-145)
--- NOTE | 2021-07-01 06:36 | PC.NURSE ---
Shift Note Frequent safety and comfort rounds continue. Orders and/or nursing care completed as indicated. Patient monitored for response to intervention and treatment(s). Education provided includes sitting on side of bed before standing to decrease chance of orthostatic hypotension with patient verbalizing understanding. patient rested well throughout this shift and is currently resting comfortably in bed. Will continue to monitor.
[2021-07-01] MEDS: ipratropium-albuterol 3 mL Neb INHALATION ×2 (07:46→16:35)
[2021-07-01] MEDS: midodrine 5 mg TABLET PO ×3 (09:04→21:12)
--- NOTE | 2021-07-01 15:48 | PM.PN ---
Subjective Subjective: Interval history: Patient was seen and examined this morning improved and better with adequate appetite to finish her breakfast, eager and motivated to walk around, she is very satisfied with her remarkable recovery i.e. transition from heated high flow to room air Covid PCR negative twice She was started on broad-spectrum antibiotics Has stayed afebrile Vitals/I&O/Wt Last Vital Signs Temp 98.1 F 07/01/21 11:50 Pulse 88 07/01/21 11:50 Resp 18 07/01/21 11:50 BP 93/52 07/01/21 11:50 Pulse Ox 94 07/01/21 11:50 07/01/21 07/01/21 07/01/21 06:59 14:59 22:59 Intake Total 290 / 640 410 / 410 Output Total 650 / 1450 Balance -360 / -810 410 / 410 Physical Exam Narrative: EXAM NARRATIVE: Patient was seen, patient was sitting comfortably in her chair She was saturating well on room air S1, S2 sinus rhythm Bilateral crepitations with rhonchi noticed in diffuse pattern No acute respite distress S1, S2 sinus rhythm No signs of heart failure Abdomen soft Lower extremity no edema EOMI, PERRLA Awake alert 20x3 GCS 15 Urinary Catheter Management^: Park: Cath Placed During This Visit: yes Reason for Continuing Indwelling Catheter: Other Urinary Catheter Date of Insertion: 06/27/21 Urinary Catheter Time of Insertion: 11:00 Data : 06/30/21 04:42 07/01/21 04:46 A&P Assessment and plan (1) Hypotension: Status: Acute (2) Acute respiratory failure with hypoxia: Status: Acute Additional A&P Information Acute hypoxic respiratory acute hypoxic respiratory failure Covid PCR negative twice She was given Decadron and remdesivir empirically Chest x-ray showing bilateral infiltrates Cultures negative to date procalcitonin unremarkable Viral panel negative, negative urine antigens, MRSA nares negative She was treated with broad-spectrum antibiotics Will discontinue Zosyn in next 24 hours, she has stayed afebrile Hypotension Normal TSH Random cortisol level was low however next day 8AM level was around 7 Currently getting midodrine 5 mg 3 times a day She has grade 1 diastolic dysfunction however clinically looks euvolemic Her baseline systolic pressure seems to be around 93 to 110 mmHg Does not have typical adrenal crisis presentation Home O2 evaluation before discharge Encourage patient to ambulate and see if she requires oxygen today Lovenox for DVT prophylaxis Full code Attestations Medical Necessity Statement*: Anticipating discharge anticipating discharge to home within 24 hours if she stays clinically stable, home with home health Time Spent in Patient Care: less than 15 minutes Coding Level of Care Code Acute Area Operations Manager for [facility] Diagnoses Hypotension I95.9 Acute respiratory failure with hypoxia J96.01
--- NOTE | 2021-07-01 20:06 | PC.NURSE ---
shift summary pt up to bedside commode and transfered well, no complaints of being dizzy or light headed, pt catheter removed this shift, pt has urinated since jordan removal. Dr Easley mentioned possible D/C tomorrow. pt has had two BM's this shift.
[2021-07-01] MEDS: enoxaparin 40 mg/0.4 mL Syringe SUBCUT (21:12)
[2021-07-02] VITALS (16 sets, daily range): BP systolic 99–108; BP diastolic 45–67; PULSE 72–98; RESP 16–20; TEMP 36.8–37.1; O2SAT 93–94
[2021-07-02] MEDS: ipratropium-albuterol 3 mL Neb INHALATION ×4 (00:24→15:38)
[2021-07-02] MEDS: guaiFENesin-dextromethorphan UDC 10 mL PO ×4 (02:53→15:00)
[2021-07-02 03:41] LABS: C Reactive Protein 4.9 mg/L (0.0-4.9)
[2021-07-02 03:43] LABS: Procalcitonin 0.21 ng/mL (0-0.5)
[2021-07-02] MEDS: piperacillin-tazobactam 3.375 GM in sodium chloride 0.9% (plus) 50 ML IV (04:59)
--- NOTE | 2021-07-02 06:15 | PC.NURSE ---
Shift Note Frequent safety and comfort rounds continue. Orders and/or nursing care completed as indicated. Patient monitored for response to intervention and treatment(s). Education provided includes side effects of zosyn and importance of using call light and waiting on assistance in getting up to chair or bedside commode. Patient verbalized understanding. Patient rested well throughout the night and is currently resting comfortably in bed. Will continue to monitor.
[2021-07-02] MEDS: midodrine 5 mg TABLET PO ×2 (09:38→15:00)
--- NOTE | 2021-07-02 11:43 | P.DS_ITS ---
Discharge Providers Date of Admission: 06/20/21 16:01 Date of Discharge: July 02, 2021 Attending Provider at Admission: Adina Easley MD Attending Provider at Discharge: Adina Easley MD Diagnoses at Discharge Discharge Diagnosis (1) Hypotension: Status: Acute (2) Acute respiratory failure with hypoxia: Status: Acute Reason for Visit Reason for Visit: sent,COVID(-):DIZZY, LOW 02 (79%) Hospital Course Hospital Course aubire Oleary is a 60 year old female with no known past medical history presented today with chief complaint of dizziness and fatigue. Symptoms started 1 week ago which she describing as lightheaded and dizziness. No recent syncopal events or falls. She has been experiencing diarrhea, nausea with worsening of fatigue and anorexia. She has been experiencing rigors/chills and subjective fevers. She lives alone. She is not vaccinated. No active chest pain. She is endorsing shortness of breath at rest and on exertion. EMS was called, she was saturating 78% on room air, she was put on 3 L nasal cannula and on ambulation she desaturated to 80%, COVID-19 negative, PCR sent, she was given Decadron in the ER, chest x-ray consistent with bilateral groundglass opacities her clinical presentation consistent with COVID-19 I will go ahead and start remdesivir. High D-dimer however CTA ruled out PE. Hospital course Patient was admitted for management of hypoxic respiratory failure initially was thought secondary to COVID-19, however Covid PCR was negative twice, she was requiring 3 to 4 L of oxygen via nasal cannula initially which increased to 15 L in next few days and then required heated high flow for about 48 hours, CTA rule out PE, chest x-ray showed groundglass opacities bilaterally, she was empirically started on broad-spectrum antibiotics which were deescalated, she never spiked any fever, she kept complaining of lethargy and fatigue which improved gradually. Her urine antigens are negative, MRSA cultures negative, blood cultures sterile. Repeat CTA chest showed worsening of groundglass opacities bilaterally otherwise no PE. Her remdesivir and Decadron regimen was completed because of her symptoms and chest x-ray findings. On the day of discharge she did not qualify for any oxygen, she is feeling back to normal, she is able to walk without any assistance, she lives alone and would like to return home, she is not vaccinated, not planning to get vaccine in future as well, non-smoker, nonalcoholic She will be discharged on Levaquin 5-day regimen Midodrine added because of her persistent hypotension, TSH normal, random cortisol level low however morning 8 AM cortisol level seems adequate, does not have typical adrenal crisis presentation Physical Exam Narrative: EXAM NARRATIVE: Patient was seen, She was saturating well on room air S1, S2 sinus rhythm Bilateral crepitations with rhonchi noticed in diffuse pattern No acute respite distress S1, S2 sinus rhythm No signs of heart failure Abdomen soft Lower extremity no edema EOMI, PERRLA Awake alert 20x3 GCS 15 Urinary Catheter Management^: Park: Cath Placed During This Visit: yes Reason for Continuing Indwelling Catheter: Other Urinary Catheter Date of Insertion: 06/27/21 Urinary Catheter Time of Insertion: 11:00 Discharge Data Data Completed and Pending: Completed Studies During Hospitalization Category Date Time Status CT angio chest PE protcl [id number] Rout ine Cat Scan 06/27/21 07:[address] angio chest PE protcl [id number] Stat Cat Scan 06/20/21 15:05 Completed CXRP [XR chest 1V portable [id number]] R outine Exams 06/27/21 00:44 Completed XR chest 1V ramses ble [id number] Routine Exams 06/26/21 10:45 Completed XR chest 1V ramses ble [id number] Routine Exams 06/30/21 08:24 Completed XR chest 1V ramses ble [id number] Stat Exams 06/20/21 13:05 Completed XR chest 1V ramses ble [id number] Stat Exams 06/23/21 16:56 Completed CV. echo complete * [id number] Routine Ultrasound 06/26/21 10:53 Completed Pending at discharge Category Date Time Status Sputum Culture Ro utine Lab 06/28/21 11:05 Uncollected Labs from last 24 hours 07/02/21 02:35 C-Reactive Protein 4.9 Procalcitonin 0.21 Vitals: Last Vital Signs Temp 98.4 F 07/02/21 11:28 Pulse 80 07/02/21 11:28 Resp 18 07/02/21 11:28 BP 104/64 07/02/21 11:28 Pulse Ox 94 07/02/21 11:28 Discharge Plan Discharge Patient Disposition: Home Condition: Stable Prescriptions: New midodrine 5 mg Tablet 5 mg PO TID 90 Days Qty: 270 RF: 0 levofloxacin 750 mg tablet 750 mg PO DAILY 5 Days RF: 0 albuterol sulfate 90 mcg/actuation HFA aerosol inhaler 2 inh inhalation Q8H PRN (Reason: shortness of breath or wheezing) Qty: 6.7 RF: 0 Continued Claritin 10 mg Tablet 10 mg PO DAILY PRN (Reason: Allergy Symptoms) RF: 0 Changed Tylenol Extra Strength 500 mg Tablet 500 mg PO PRN Qty: 0 RF: 0 Discharge Orders: Discharge Order (Routine); Ordered 07/02/21 Ordered By: Adina Easley Discharge Diet: Advance as tolerated Discharge Activity: Resume usual activity Patient Instructions: Opioid Safety Activity Restrictions/Additional Instructions: Finish 5 days of antibiotic and you can use albuterol inhaler for shortness of breath. Please get COVID-19 vaccination to prevent spread of infection Discharge Attestations Time Spent in Discharge Care*: less than 30 min Quality Metrics Clinical Quality Measures During this hospital stay, did patient experience: None Coding Level of Care Code Acute [facility] MOHAN note Diagnoses Hypotension I95.9 Acute respiratory failure with hypoxia J96.01
== END 2021-07-02 16:15 | disposition home or self-care (01) | DRG 193 ==
LOC: ER 16:00 → MEDSURG 19:59
PROVIDERS: Internal Medicine; Admitting Provider Internal Medicine; Emergency Provider Emergency Medicine; Visit Provider Internal Medicine
DX: J18.9 Pneumonia, unspecified organism (principal); J96.01 Acute respiratory failure with hypoxia; R19.7 Diarrhea, unspecified; I95.9 Hypotension, unspecified; Z20.822 Contact with and (suspected) exposure to COVID-19
CPT/HCPCS: 36415; 36600; 51702; 71045; 71275; 80048; 80053; 80202; 82533; 82550; 82728; 82803; 83036; 83520; 83605; 83615; 83735; 83880; 84145; 84443; 84484; 85025; 85378; 85384; 85610; 85730; 86140; 86403; 87040; 87426; 87449; 87635; 87641; 87804; 93005; 93306; 94640; 94664; 96372; 96374; 99285; J0610; J0696; J1100; J1650; J1940; J2543; J2930; J3370; J3535; J7030; J7050; Q9967

== ENCOUNTER 2021-09-11 13:52 | Outpatient (CLI) | payer BC, SELFPAY ==
--- NOTE | 2021-09-11 13:57 | MM_ITS ---
WS: [id number] BILATERAL DIGITAL SCREENING MAMMOGRAPHY WITH CAD CLINICAL INFORMATION: SCREENING HISTORY: Screening mammogram. No current complaints. COMPARISON: None. TECHNIQUE: Bilateral CC and MLO views. FINDINGS: Scattered fibroglandular densities bilaterally. Slight asymmetric dense breast tissue upper outer wilfrid asts left greater than right. No suspicious focal mass, asymmetry, calcifications, or architectural d istortion. No evidence of malignancy. MM/[place] [id number] IMPRESSION: BI-RADS: 2-Benign FOLLOW UP: 1 Year Follow-up Recommend return to annual screening mammography.
== END 2021-09-11 13:53 | disposition home or self-care (01) ==
LOC: RADSHAW 13:56
PROVIDERS: PCP Nurse Practitioner Family; Visit Provider Nurse Practitioner Family
DX: Z12.31 Encounter for screening mammogram for malignant neoplasm of breast (principal)
CPT/HCPCS: 77067